=== PATIENT | female | born 1950 | race Caucasian/White ===

== ENCOUNTER 2023-09-15 14:23 | Observation (INO) | payer OTHER, SELFPAY ==
[2023-09-15] VITALS (13 sets, daily range): BP systolic 109–190; BP diastolic 61–126; PULSE 48–70; RESP 12–25; TEMP 36.6–36.9; O2SAT 93–98; BMI 32.5; BMI 31.4
--- NOTE | 2023-09-15 14:40 | EKG12_ITS ---
Test Reason : AMS Blood Pressure : / mmHG Vent. Rate : 051 BPM Atrial Rate : 051 BPM P-R Int : 228 ms QRS Dur : 104 ms QT Int : 532 ms P-R-T Axes : 042 -18 040 degrees QTc Int : 490 ms Sinus bradycardia with 1st degree A-V block Minimal voltage criteria for LVH, may be normal variant ( Srini product ) Prolonged QT Abnormal ECG Confirmed by Santy Coppola ([id number]), visual effects editor VINNY HUANG ([id number]) on 09/16/2023 9:18:20 AM Referred By: Confirmed By:Santy Coppola
[2023-09-15 15:14] LABS: Absolute Lymphocyte Count 6.03 X10^3/uL (0.83-4.51); Absolute Neutrophil Count 5.6 X10^3/uL (2.0-7.7); Basophil# 0.09 X10^3/uL; Basophil% 0.7 % (0-1); Eosinophil# 0.18 X10^3/uL; Eosinophils% 1.3 % (0-5); Hematocrit 39.5 % (37-47); Hemoglobin 12.9 g/dL (12.0-15.0); Lymphocyte # 6.03 X10^3/ul (0.83-4.51); Lymphocyte % 44.6 % (19-41); Mean Corp Hgb Conc 32.7 g/dL (32-36); Mean Corpuscular Hgb 29.5 pg (27.0-32.0); Mean Corpuscular Volume 90.4 fL (81-99); Mean Platelet Vol. 10.1 fl (6.2-12.0); Monocyte# 1.08 X10^3/uL; NRBC Flagged by Analyzer 0 % (0-5); Neutrophil # 5.62 X10^3/uL (2.7-7.7); Neutrophil % 41.6 % (47-70); POSITIVE DIFFERENTIAL YES; POSITIVE MORPHOLOGY YES; Platelet Count 285 K/mm3 (150-450); RBC Distribution Width CV 14.3 % (11.6-14.6); RBC Distribution Width SD 47.3 fl (35.1-43.9); Red Blood Count 4.37 M/mm3 (4.2-5.4); White Blood Count 13.5 K/mm3 (4.4-11.0)
[2023-09-15 15:15] LABS: Anion Gap 6 (5-15); BUN 18 mg/dL (7-18); BUN/Creat Ratio 21.8 RATIO (10-20); Calcium,Total 9.2 mg/dL (8.5-10.1); Chloride 110 mmol/L (98-107); Creatinine, Serum 0.83 mg/dL (0.55-1.02); EST Glomerular Filtration Rate 72 mL/min (>60); Est Glom Filt Rate - Afr Amer 87 mL/min (>60); Estimated Creatinine Clearance 66.48 ml/min; Glucose 142 mg/dL (74-106); Sodium Level 142 mmol/L (136-145)
[2023-09-15 15:16] LABS: Prothrombin Time (Protime)PT. 12.7 SECONDS (11.7-14.9)
[2023-09-15 15:17] LABS: Partial Thromboplast Time 21.5 Seconds (24.1-36.2)
--- NOTE | 2023-09-15 15:36 | EDS_ITS ---
HPI History of Present Illness Chief Complaint: Syncope Informant: patient, family and EMS Narrative Narrative: 73-year-old female with history of coronary artery disease presenting to the emergency department following a near syncopal episode. Patient states she was in her normal state of health this morning at around 1130 left home to go have lunch with her sisters as it is the patient's birthday. She ate lunch consisting of mashed potatoes and a ham loaf. No one else ate the same food. She states she went upstairs to go shopping and while standing in line had very hot and lightheaded and had to sit down. She felt like she was going to pass out. She was not experience any significant abdominal pain or chest pain/shortness of breath. Family states she was not sweaty. Patient subsequently has developed nausea and vomiting. No diarrhea. No fever. Patient had PTCA to unknown artery about 10 years ago at [facility]. She does not take any medications and sees a filling hand every summer. [facility] Medical History History of CVA (cerebrovascular accident) History of traumatic brain injury Obesity HLD (hyperlipidemia) HTN (hypertension) Coronary artery disease CHF (congestive heart failure) Diabetes Allergy/AdvReac Type Severity Reaction Status Date / Time No Known Allergies Allergy Verified 09/15/23 14:24 Family History (Updated 09/15/23 @ 21:[address] Doris Lujan MD) Mother Heart disease CAD (coronary artery disease) CVA (cerebral vascular accident) Diabetes Hypertension Father Heart disease CAD (coronary artery disease) Hypertension Valvular heart disease Heart failure Surgical History History of coronary angioplasty with insertion of stent Social History household members: spouse and family Smoking Status: Never smoker alcohol intake: never substance use type: does not use ROS ROS ED Constitutional Constitutional ED: Denies chills, fever(s) or weight loss Eyes Eyes: Denies change in vision or diplopia ENT ENT ED: Denies ear pain, rhinorrhea or sore throat Cardiovascular Cardiovascular: Reports other Details: Near syncope lightheadedness ; Denies chest pain, orthopnea, palpitations or racing heartbeat Respiratory/Chest Respiratory/Chest: Denies cough, dyspnea or orthopnea Gastrointestinal Gastrointestinal: Reports nausea and vomiting; Denies abdominal pain or diarrhea Genitourinary Genitourinary ED: Denies dysuria, hematuria or urinary frequency Musculoskeletal Musculoskeletal: Reports other Details: Patient denies arm pain ; Denies arthralgias, back pain, myalgias or neck pain Integumentary Denies abscess or rash Neurologic Neurologic: Denies headache(s), paresthesias or weakness Psychiatric Psychiatric: Denies anxiety, depression, suicidal ideation or suicidal thoughts Endocrine Endocrinology: Denies polydipsia, polyphagia or polyuria Allergic/Immunologic Allergic/Immunologic ED: Denies mouth swelling, tongue swelling or urticaria EXAM Physical Exam Const Vital Signs: 09/15/23 14:24 09/15/23 14:25 09/15/23 14:44 Temperature 97.8 F Temperature Source Temporal Pulse Rate 49 L Pulse Rate [Lying] Pulse Rate [Sitting (for 1 minute prior to obtaining)] Pulse Rate [Standing (for 1 minute prior to obtaining)] Respiratory Rate 14 Respiratory Effort Normal Respiratory Pattern Normal Blood Pressure 167/73 H Blood Pressure [Lying] Blood Pressure [Sitting (for 1 minute prior to obtaining)] Blood Pressure [Standing (for 1 minute prior to obtaining)] Blood Pressure Mean 104 Blood Pressure Mean [Lying] Blood Pressure Mean [Sitting (for 1 minute prior to obtaining)] Blood Pressure Mean [Standing (for 1 minute prior to obtaining)] Pulse Ox 93 Oxygen Delivery Method Room Air Room Air 09/15/23 15:36 09/15/23 16:00 09/15/23 17:00 Temperature Temperature Source Pulse Rate 48 L 51 L 48 L Pulse Rate [Lying] Pulse Rate [Sitting (for 1 minute prior to obtaining)] Pulse Rate [Standing (for 1 minute prior to obtaining)] Respiratory Rate 12 16 14 Respiratory Effort Respiratory Pattern Blood Pressure 135/72 H 133/72 H 180/76 H Blood Pressure [Lying] Blood Pressure [Sitting (for 1 minute prior to obtaining)] Blood Pressure [Standing (for 1 minute prior to obtaining)] Blood Pressure Mean 93 92 110 Blood Pressure Mean [Lying] Blood Pressure Mean [Sitting (for 1 minute prior to obtaining)] Blood Pressure Mean [Standing (for 1 minute prior to obtaining)] Pulse Ox 97 98 98 Oxygen Delivery Method Room Air Room Air Room Air 09/15/23 17:26 09/15/23 18:00 09/15/23 19:00 Temperature Temperature Source Pulse Rate 54 L 55 L Pulse Rate [Lying] 66 Pulse Rate [Sitting (for 1 minute prior to obtaining)] 58 L Pulse Rate [Standing (for 1 minute prior to obtaining)] 60 Respiratory Rate 16 19 H Respiratory Effort Respiratory Pattern Blood Pressure 178/126 H 150/75 H Blood Pressure [Lying] 182/64 H Blood Pressure [Sitting (for 1 minute prior to obtaining)] 190/61 H Blood Pressure [Standing (for 1 minute prior to obtaining)] 178/78 H Blood Pressure Mean 143 100 Blood Pressure Mean [Lying] 103 Blood Pressure Mean [Sitting (for 1 minute prior to obtaining)] 104 Blood Pressure Mean [Standing (for 1 minute prior to obtaining)] 111 Pulse Ox 98 95 Oxygen Delivery Method Room Air 09/15/23 20:00 09/15/23 21:00 Temperature Temperature Source Pulse Rate 70 56 L Pulse Rate [Lying] Pulse Rate [Sitting (for 1 minute prior to obtaining)] Pulse Rate [Standing (for 1 minute prior to obtaining)] Respiratory Rate 25 H 18 Respiratory Effort Respiratory Pattern Blood Pressure 171/61 H 109/97 H Blood Pressure [Lying] Blood Pressure [Sitting (for 1 minute prior to obtaining)] Blood Pressure [Standing (for 1 minute prior to obtaining)] Blood Pressure Mean 97 101 Blood Pressure Mean [Lying] Blood Pressure Mean [Sitting (for 1 minute prior to obtaining)] Blood Pressure Mean [Standing (for 1 minute prior to obtaining)] Pulse Ox 96 96 Oxygen Delivery Method Room Air Room Air Positive well nourished, well developed and obese General Appearance ED: well developed Nutritional Appearance: obese HEENT Reports normocephalic, head/scalp atraumatic and moist mucous membranes Eyes PERRL and EOMs intact bilaterally Neck no lymphadenopathy, supple and no JVD Resp normal respiratory effort and clear to auscultation bilaterally Cardio regular rate and no murmurs Rate: bradycardia GI normal to inspection, nondistended, normoactive bowel sounds and non-tender Palpation: soft Back/Spine no CVA tenderness and normal ROM Extremity normal to inspection General Extremety ED: Negative for edema General Extremity: Negative for edema Neuro oriented x3 and CN's II-XII intact bilaterally Sensorium / Orientation: alert Motor Exam: strength 5/5 throughout Psych mental status grossly normal Mood & Affect: Negative for depressed or tearful Skin no rashes or lesions noted and no wounds MDM MDM MDM Narrative Medical decision making narrative: Differential diagnosis includes but not limited to ACS primary cardiac dysrhythmia vasovagal syncope gastroenteritis stroke intracranial hemorrhage Patient noted to be hypertensive. She tells me initially that she has a history of stroke but it later turns out that she had a syncopal episode following striking her head several arita ago. White count returns 13.5 with a hemoglobin of 12.9. 2 sets of cardiac enzymes are normal. Lipase is 66 BMP shows a potassium of 3 magnesium is normal at 2.2 glucose 142 my independent interpretation of the chest x-ray is no acute process. Patient continues to be hypertensive as well as lightheaded. We attempted to obtain orthostatics on her which were normal but the patient was very dizzy. Trying to elucidate if she means more lightheaded or if the room is spinning she tells me more dizzy that it spinning. She cannot say if the room is spinning in 1 direction or the other with horizontal or vertical. She tells me she has a history of vertigo. A CT of the brain was obtained which demonstrates subacute to chronic infarct region right basal ganglia and a chronic left cerebellar infarct. Patient received a dose of Valium and her symptoms persist. I gave her Tylenol for a headache. We also administered supplemental potassium as well as Zofran. Rocephin and azithromycin were inadvertently ordered on the patient and were rapidly canceled. Given the above workup the lack of prodrome and the difficulty in elucidating a clear history I like to bring her into the hospital for possible posterior circulation stroke. History & Record Review Discussion w/independent historian: EMS personnel, Patient and Family Lab Data Attestation: I reviewed the patient's lab results. Labs: Laboratory Results - last 24 hr 09/15/23 09/15/23 14:35 16:30 WBC 13.5 H RBC 4.37 Hgb 12.9 Hct 39.5 MCV 90.4 MCH 29.5 MCHC 32.7 RDW Std Deviation 47.3 H RDW Coeff of Jase 14.3 Plt Count 285 MPV 10.1 Immature Gran % (Auto) 3.800 H Neut % (Auto) 41.6 L Lymph % (Auto) 44.6 H Roane % (Auto) 8.0 Eos % (Auto) 1.3 Baso % (Auto) 0.7 Absolute Neuts (auto) 5.6 Absolute Lymphs (auto) 6.03 H Nucleated RBC % 0 PT 12.7 INR 1.0 APTT 21.5 L Sodium 142 Potassium 3.0 L Chloride 110 H Carbon Dioxide 26.0 Anion Gap 6 BUN 18 Creatinine 0.83 Estim Creat Clear Calc 66.48 Est GFR (MDRD) Af Amer 87 Est GFR (MDRD) Non-Af 72 BUN/Creatinine Ratio 21.8 H Glucose 142 H Calcium 9.2 Magnesium 2.2 Total Bilirubin 0.40 Direct Bilirubin 0.11 AST 29 ALT 26 Alkaline Phosphatase 58 Troponin I High Sens 4 5 Total Protein 7.8 Albumin 3.6 Globulin 4.2 Lipase 66 Radiography Diagnostic Testing: Clinical Impression(s) from Imaging Studies Chest X-Ray 09/15/23 15:45 IMPRESSION: No acute cardiopulmonary pathology Electronically Signed: Praful Springer MD at 16:57 EDT , Brain CT 09/15/23 18:21 IMPRESSION: Atrophy and mild periventricular white matter ischemic changes. Cannot exclude evolving NPH. Probable subacute to chronic right basal ganglia lacunar infarct and old left cerebellar infarct. No acute bleed. If concern for acute infarct MRI recommended Electronically Signed: Praful Springer MD at 19:28 EDT , Head/Neck CTA 09/15/23 19:36 IMPRESSION: . Mild atherosclerotic changes of the brain without evidence for hemodynamically significant stenosis or major vessel occlusion. Minor atherosclerotic changes of the cervical carotids. Normal right vertebral. Occluded proximal left vertebral which is reconstituted distally and then is occluded again at the level of the foramen magnum Electronically Signed: Praful Springer MD at 21:37 EDT , EKG Initial EKG: Attestation: I personally reviewed and interpreted this EKG as follows: Comments: Sinus bradycardia with a first-degree AV block at a ventricular rate of 51 bpm Discharge Plan Dx/Rx/DC Orders Clinical Impression: Near syncope, Vomiting, Coronary artery disease Disposition Disposition: Acute Care Hospital [facility] Discharge Date/Time: 09/15/23 22:23
[2023-09-15] MEDS: Ondansetron 4 MG/2 ML Vial IV ×2 (15:41→23:08)
--- NOTE | 2023-09-15 15:45 | RAD_ITS ---
STUDY: X-RAY CHEST REASON FOR EXAM: Female, 73 years old. syncope TECHNIQUE: AP portable COMPARISON: None. FINDINGS: The lungs are clear and expanded. There is no demonstrated pleural abnormality. Borderline cardiomegaly.. Normal mediastinum and rafaela. Normal visualized pulmonary arteries. Mildly calcified aortic arch and descending thoracic aorta. Normal visualized thoracic spine. Normal visualized ribs, clavicles, and shoulders. There is no demonstrated abnormality of the visualized soft tissue structures of the upper abdomen. RAD/Chest 1 View (Portable) IMPRESSION: No acute cardiopulmonary pathology Electronically Signed: Praful Springer MD at 16:57 EDT ,
[2023-09-15 16:05] LABS: Differential Indicated SCAN CRITERIA MET
[2023-09-15 16:23] LABS: AST(SGOT) 29 U/L (15-37); Alanine Aminotransfer ALT/SGPT 26 U/L (13-56); Albumin, Serum 3.6 g/dL (3.2-5.0); Alkaline Phosphatase 58 U/L (45-117); Bilirubin, Direct 0.11 mg/dL (0.00-0.30); Globulin 4.2 g/dL (2.2-4.2); Lipase 66 U/L (13-75); Protein, Total 7.8 g/dL (6.4-8.2); Troponin-I HS 4 pg/mL (3.0-54.0)
[2023-09-15 17:03] LABS: Troponin-I HS 5 pg/mL (3.0-54.0)
[2023-09-15] MEDS: Potassium Chloride Oral Tablet 20 MEQ 40 MEQ PO (17:30)
--- NOTE | 2023-09-15 18:21 | CT_ITS ---
STUDY: CT BRAIN WITHOUT CONTRAST REASON FOR EXAM: Female, 73 years old. dizziness RADIATION DOSAGE (If Supplied By Facility): CTDIvol = ( 44.99 ) mGy, DLP = ( 829.85 ) mGycm TECHNIQUE: Transaxial CT imaging of the brain was performed without administration of intravenous contrast material. Individualized dose optimization techniques were used for this CT. COMPARISON: No relevant priors. FINDINGS: Normal soft tissue structures. Normal calvarium. Calcific plaquing of the cavernous carotids. Mild atrophy and periventricular white matter ischemic changes. There is disproportionate dilatation of lateral ventricles with respect to the cortical sulci and possibility of communicating hydrocephalus or NPH not excluded. . Tiny lacunar infarct in the right basal ganglia likely subacute to chronic. Normal brainstem. There is an infarct in left cerebellar hemisphere likely chronic. Empty sella deformity of uncertain significance. There is no intracranial hemorrhage. There are no findings of an acute ischemic infarction. Moderate mucosal thickening of the maxillary and ethmoid sinuses bilaterally. Postsurgical changes of the orbits.. CT/Brain/Head without Contrast IMPRESSION: Atrophy and mild periventricular white matter ischemic changes. Cannot exclude evolving NPH. Probable subacute to chronic right basal ganglia lacunar infarct and old left cerebellar infarct. No acute bleed. If concern for acute infarct MRI recommended Electronically Signed: Praful Springer MD at 19:28 EDT ,
[2023-09-15] MEDS: diazePAM 5 MG Tablet PO (18:25)
[2023-09-15] MEDS: Acetaminophen 500 MG Tablet 1000 MG PO (18:25)
[2023-09-15 18:28] LABS: Magnesium 2.2 mg/dL (1.6-2.6)
--- NOTE | 2023-09-15 19:36 | CT_ITS ---
STUDY: CTA HEAD AND NECK WITH CONTRAST REASON FOR EXAM: Female, 73 years old. stroke RADIATION DOSAGE (If Supplied By Facility): CTDIvol = ( 23.84 ) mGy, DLP = ( 718.95 ) mGycm TECHNIQUE: CT angiography was performed with a multi-detector CT scanner. Data acquisition was obtained from the skull base through the vertex following intravenous administration of IV 100mL [id number]-[id number]. MIP images were reconstructed from the axial data set. Post-processing of the angiographic images was performed, with multiplanar reformation and 3D reconstruction. Individualized dose optimization techniques were used for this CT. COMPARISON: No relevant priors. FINDINGS: Normal bilateral petrous carotid arteries. Calcific plaquing of the right cavernous carotid artery with a normal supraclinoid bifurcation. Calcific plaquing of the left cavernous carotid artery with a normal supraclinoid bifurcation. Normal right A1 segments of the anterior cerebral artery. Normal left A1 segments of the anterior cerebral artery. Normal intact anterior communicating artery (ACOM). Normal bilateral A2 segments of the anterior cerebral arteries. Normal right M1 and M2 segments of the middle cerebral arteries, with a normal M1 bifurcation. Normal left M1 and M2 segments of the middle cerebral arteries, with a normal M1 bifurcation. Posterior communicating arteries are not visualized consistent with normal variant. Normal right vertebral. Occluded distal left vertebral. Normal basilar artery with a normal basilar bifurcation. The visualized bilateral superior cerebellar (SCA) arteries are normal. Normal bilateral P1, P2 and visualized P3 segments of the posterior cerebral arteries. There is no demonstrated aneurysm of the [place]. AORTIC ARCH: Normal visualized aortic arch. Normal origins of the brachiocephalic, left common carotid, and left subclavian arteries. RIGHT CAROTID ARTERIES: Normal right common carotid artery (CCA). Normal right common carotid bulb. Mild calcific plaquing of the origin of the right internal carotid (ICA) artery without a hemodynamically significant stenosis. Normal visualized cervical portion of the right internal carotid artery. Normal origin of the right external carotid artery (ECA). LEFT CAROTID ARTERIES: Normal left common carotid artery (CCA). Minor calcific plaquing of the left common carotid bulb. Normal origin of the left internal carotid (ICA) artery without a hemodynamically significant stenosis. Normal visualized cervical portion of the left internal carotid artery. Normal origin of the left external carotid artery (ECA). VERTEBRAL ARTERIES: Normal right vertebral. There is occlusion of the proximal left vertebral which is reconstituted distally and then occluded at the level of the foramen magnum CT/CTA Head AND Neck W/ Contrast IMPRESSION: . Mild atherosclerotic changes of the brain without evidence for hemodynamically significant stenosis or major vessel occlusion. Minor atherosclerotic changes of the cervical carotids. Normal right vertebral. Occluded proximal left vertebral which is reconstituted distally and then is occluded again at the level of the foramen magnum Electronically Signed: Praful Springer MD at 21:37 EDT ,
--- NOTE | 2023-09-15 21:12 | HP.PCM.HOS_ITS ---
HPI - General General Date of Admission: 09/15/23 Date of Service: 09/15/23 Chief Complaint: Lightheadedness, dizziness, N/V, near syncope. HPI Narrative The patient is a 73 y/o F w/ PMHx: CAD s/p remote PCI, HTN, HLD, HF unclear type, Hx prior traumatic brain hemorrhage (occipital) following mechanical fall, Diabetes mellitus type II, Obesity who presents to the [facility] ED on 09/15/23 with history of near syncopal episode reportedly in her normal state of health leaving home at approximately 1130 to have lunch with her and her sisters as it was her birthday reportedly transitioning from lunch to go shopping and while she was standing in line she became very hot and lightheaded requiring her to sit down with sensation that she was going to pass out with no recent chest pain, dyspnea, abdominal pain however she did have then nausea and bout of emesis eventually improving but given this finding prompted eventual ED evaluation. She does report history of occasional vertigo. She currently states that during this episode she did not have any sensation of room spinning. She does report that she had onset of a headache on the top part of her head described as an aching 3 out of 10 with no light or sound sensitivity that started after the onset of her lightheadedness, dizziness and bouts of nausea and emesis. Patient reports that she follows with osteopathic medicine and does not take any medications. Workup in the ED included T97.8, heart rate 49, BP 167/73, respiratory rate 93, orthostatics not marked appearing, most recent repeat vitals heart rate 70, BP 171/61, respiratory rate 25, 96% room air, CBC with WC of 13.5, hemoglobin 12.9, platelets 285 with left shift and lymphocytosis, coags with PTT 21.5 otherwise not marked appearing, CMP with potassium 3.0, chloride 110, glucose 142, magnesium 2.2, hepatic profile not marked appearing, troponin initial 4 and repeat delta 5, chest x-ray with no acute cardiopulmonary findings, CT brain with atrophy and mild periventricular white matter ischemic changes with inability to exclude evolving NPH, probable subacute to chronic right basal ganglier lacunar infarct and an old left cerebellar infarct with no evidence of any acute bleed, CTA head and neck pending upon evaluation, EKG with sinus bradycardia with first-degree AV block with no acute evidence of ischemia with no comparison. In the ED patient ministered potassium chloride 40 mill equivalent p.o. x 1, Zofran 4 mg IV x 1, Tylenol 1000 mg p.o. x 1, Valium 5 mg p.o. x 1. [facility] Medical History History of CVA (cerebrovascular accident) History of traumatic brain injury Obesity HLD (hyperlipidemia) HTN (hypertension) Coronary artery disease CHF (congestive heart failure) Diabetes Allergy/AdvReac Type Severity Reaction Status Date / Time No Known Allergies Allergy Verified 09/15/23 14:24 Family History Mother Heart disease CAD (coronary artery disease) CVA (cerebral vascular accident) Diabetes Hypertension Father Heart disease CAD (coronary artery disease) Hypertension Valvular heart disease Heart failure Surgical History History of coronary angioplasty with insertion of stent Social History household members: spouse and family Smoking Status: Never smoker alcohol intake: never substance use type: does not use ROS ROS Narrative Admission Review of Systems: CONSTITUTIONAL: No weight loss, fever, chills, + weakness or fatigue. HEENT: + Lightheadedness, dizziness, headache. Does have history of vertigo, not currently. Eyes: No visual loss, blurred vision, double vision or yellow sclerae. Ears, Nose, Throat: No hearing loss, sneezing, congestion, runny nose or sore throat. SKIN: No rash or itching, lesions, wounds. CARDIOVASCULAR: No chest pain, chest pressure or chest discomfort, palpitations, edema, orthopnea, syncopal events. RESPIRATORY: No shortness of breath, cough or sputum, wheezing, hemoptysis. GASTROINTESTINAL: + Bout nausea, vomiting. No anorexia, diarrhea, abdominal pain, melena, BRBPR. GENITOURINARY: No dysuria, frequency, urgency or retention. NEUROLOGICAL: + Episode of lightheadedness, dizziness, headache, near syncopal event, chronic intermittent episodes of vertigo. No paralysis, ataxia, numbness or tingling in the extremities, focal weakness, change in bowel or bladder control, seizure. MUSCULOSKELETAL: + muscle, back pain, joint pain or stiffness. HEMATOLOGIC: No anemia, bleeding or bruising. LYMPHATICS: No enlarged nodes. No history of splenectomy. PSYCHIATRIC: No history of depression or anxiety. ENDOCRINOLOGIC: No reports of sweating, cold or heat intolerance. No polyuria or polydipsia. ALLERGIES: No history of asthma, hives, eczema or rhinitis. Vital Signs Vital Signs Vital Signs: 09/15/23 14:24 09/15/23 14:25 09/15/23 14:44 Temperature 97.8 F Temperature Source Temporal Pulse Rate 49 L Pulse Rate [Lying] Pulse Rate [Sitting (for 1 minute prior to obtaining)] Pulse Rate [Standing (for 1 minute prior to obtaining)] Respiratory Rate 14 Respiratory Effort Normal Respiratory Pattern Normal Blood Pressure 167/73 H Blood Pressure [Lying] Blood Pressure [Sitting (for 1 minute prior to obtaining)] Blood Pressure [Standing (for 1 minute prior to obtaining)] Blood Pressure Mean 104 Blood Pressure Mean [Lying] Blood Pressure Mean [Sitting (for 1 minute prior to obtaining)] Blood Pressure Mean [Standing (for 1 minute prior to obtaining)] Pulse Ox 93 Oxygen Delivery Method Room Air Room Air 09/15/23 15:36 09/15/23 16:00 09/15/23 17:00 Temperature Temperature Source Pulse Rate 48 L 51 L 48 L Pulse Rate [Lying] Pulse Rate [Sitting (for 1 minute prior to obtaining)] Pulse Rate [Standing (for 1 minute prior to obtaining)] Respiratory Rate 12 16 14 Respiratory Effort Respiratory Pattern Blood Pressure 135/72 H 133/72 H 180/76 H Blood Pressure [Lying] Blood Pressure [Sitting (for 1 minute prior to obtaining)] Blood Pressure [Standing (for 1 minute prior to obtaining)] Blood Pressure Mean 93 92 110 Blood Pressure Mean [Lying] Blood Pressure Mean [Sitting (for 1 minute prior to obtaining)] Blood Pressure Mean [Standing (for 1 minute prior to obtaining)] Pulse Ox 97 98 98 Oxygen Delivery Method Room Air Room Air Room Air 09/15/23 17:26 09/15/23 18:00 09/15/23 19:00 Temperature Temperature Source Pulse Rate 54 L 55 L Pulse Rate [Lying] 66 Pulse Rate [Sitting (for 1 minute prior to obtaining)] 58 L Pulse Rate [Standing (for 1 minute prior to obtaining)] 60 Respiratory Rate 16 19 H Respiratory Effort Respiratory Pattern Blood Pressure 178/126 H 150/75 H Blood Pressure [Lying] 182/64 H Blood Pressure [Sitting (for 1 minute prior to obtaining)] 190/61 H Blood Pressure [Standing (for 1 minute prior to obtaining)] 178/78 H Blood Pressure Mean 143 100 Blood Pressure Mean [Lying] 103 Blood Pressure Mean [Sitting (for 1 minute prior to obtaining)] 104 Blood Pressure Mean [Standing (for 1 minute prior to obtaining)] 111 Pulse Ox 98 95 Oxygen Delivery Method Room Air 09/15/23 20:00 09/15/23 21:00 Temperature Temperature Source Pulse Rate 70 56 L Pulse Rate [Lying] Pulse Rate [Sitting (for 1 minute prior to obtaining)] Pulse Rate [Standing (for 1 minute prior to obtaining)] Respiratory Rate 25 H 18 Respiratory Effort Respiratory Pattern Blood Pressure 171/61 H 109/97 H Blood Pressure [Lying] Blood Pressure [Sitting (for 1 minute prior to obtaining)] Blood Pressure [Standing (for 1 minute prior to obtaining)] Blood Pressure Mean 97 101 Blood Pressure Mean [Lying] Blood Pressure Mean [Sitting (for 1 minute prior to obtaining)] Blood Pressure Mean [Standing (for 1 minute prior to obtaining)] Pulse Ox 96 96 Oxygen Delivery Method Room Air Room Air Weight Weight: 195 lb 15.855 oz Body Mass Index (BMI) 32.5 Physical Exam Narrative Physical Examination: General: Awake, alert, oriented x 3 and cooperative, laying in the ED bed, fatigued, notes having a headache however feels improved with no nausea or emesis or lightheadedness or dizziness. Skin: Normal color, normal turgor, no icterus, no cyanosis except occasional abrasion. HEENT: AT/NC, EOMI, PERRLA, dry MM, no carotid bruits or markedly noted JVD; however, thickened neck makes evaluation difficult Lungs: CTA bilaterally, moderate effort, mild decrease BL bases, no rales, ronchi or wheezing. Heart: Mildly bradycardic with regular rhythm; no gallop, rub audible. Abdomen: Soft, obese, NTTP, ND, distant normal BS, no appreciated HSM. Extremities: No cyanosis, clubbing, or edema. Neurological: Patient awake, alert, oriented as noted, cognitive function intact; pupils equally reactive to light and accommodation, cranial nerves grossly normal, moving all 4 extremities, no focal deficits, strength mildly to moderately globally decreased but again no focal deficits as noted, sensation intact, finger-nose and [id number] appropriate. Psychiatric: Affect appears improved from initial presentation per spouse report, currently appears fatigued otherwise normal, no acute evidence of depressive or anxiety feelings. Results Lab / Micro Data 09/15/23 14:35 09/15/23 14:35 Labs: Laboratory Results - last 24 hr 09/15/23 14:35: WBC 13.5 H, RBC 4.37, Hgb 12.9, Hct 39.5, MCV 90.4, MCH 29.5, MCHC 32.7, RDW Std Deviation 47.3 H, RDW Coeff of Jase 14.3, Plt Count 285, MPV 10.1, Immature Gran % (Auto) 3.800 H, Neut % (Auto) 41.6 L, Lymph % (Auto) 44.6 H, [place] % (Auto) 8.0, Eos % (Auto) 1.3, Baso % (Auto) 0.7, Absolute Neuts (auto) 5.6, Absolute Lymphs (auto) 6.03 H, Nucleated RBC % 0, PT 12.7, INR 1.0, APTT 21.5 L, Sodium 142, Potassium 3.0 L, Chloride 110 H, Carbon Dioxide 26.0, Anion Gap 6, BUN 18, Creatinine 0.83, Estim Creat Clear Calc 66.48, Est GFR (MDRD) Af Amer 87, Est GFR (MDRD) Non-Af 72, BUN/Creatinine Ratio 21.8 H, Glucose 142 H, Calcium 9.2, Total Bilirubin 0.40, Direct Bilirubin 0.11, AST 29, ALT 26, Alkaline Phosphatase 58, Troponin I High Sens 4, Total Protein 7.8, Albumin 3.6, Globulin 4.2, Lipase 66 09/15/23 16:30: Magnesium 2.2, Troponin I High Sens 5 Imaging Radiology Impression Chest X-Ray 09/15/23 15:45 IMPRESSION: No acute cardiopulmonary pathology Electronically Signed: Praful Springer MD at 16:57 EDT , Brain CT 09/15/23 18:21 IMPRESSION: Atrophy and mild periventricular white matter ischemic changes. Cannot exclude evolving NPH. Probable subacute to chronic right basal ganglia lacunar infarct and old left cerebellar infarct. No acute bleed. If concern for acute infarct MRI recommended Electronically Signed: Praful Springer MD at 19:28 EDT Reading Location ID and State: [address] [place] [address] Tel , Service support , Assessment & Plan Assessment/Plan (1) Near syncope: PLAN: Plan The patient is a 73 y/o F w/ PMHx: CAD s/p remote PCI, HTN, HLD, HF unclear type, Hx prior traumatic brain hemorrhage (occipital) following mechanical fall, Diabetes mellitus type II, Obesity who presents to the [facility] ED on 09/15/23 with history of near syncopal episode reportedly in her normal state of health leaving home at approximately 1130 to have lunch with her and her sisters as it was her birthday reportedly transitioning from lunch to go shopping and while she was standing in line she became very hot and lightheaded requiring her to sit down with sensation that she was going to pass out with no recent chest pain, dyspnea, abdominal pain however she did have then nausea and bout of emesis eventually improving but given this finding prompted eventual ED evaluation. #1. Near syncopal event with lightheadedness, dizziness, nausea and bout of emesis, unclear exact etiology however concern for Subacute CVA given imaging findings with CT head with concern for subacute to chronic right basal ganglia lacunar infarcts and noted also old left cerebellar infarct w/ Hx prior traumatic brain hemorrhage (occipital) following mechanical fall: CTA head and neck pending upon evaluation. As long as no intervention needs determined which is not expected then would plan to process with admission to PCU, will obtain MRI Brain, ECHO, PT/OT/Speech/Nutrition evaluation per protocol. Will allow permissive HTN, maintain on asa, statin w/ AM FLP, fall precautions. Mag, TSH, FLP, HgbA1c requested. Maintain on fall and aspiration precautions. Will request neurology consultation. Additionally will continue to cycle cardiac enzymes. #2. Diabetes mellitus type II: Patient not on any regimen with homeopathic interventions noted only, hemoglobin A1c requested, nutrition consulted per stroke protocol as noted, maintain on ADA diet, accu checks w/ ISS. #3. HF, unclear type: Given presentation and unclear history will judiciously hydrate, will maintain on aspirin as noted as well as addition of statin therapy, permissive hypertension ongoing but once appropriate if necessary will add hypertensive regimen as patient per report is mostly been utilizing homeopathic therapies. At the cutting requested is noted. #4. Hypertension, untreated: Patient not on any regimen with homeopathic interventions noted only, given presentation we will maintain permissive hypertension pending further evaluation with MRI as noted with as needed agents per stroke protocol. #5. Hyperlipidemia: Will initiate statin therapy given number 1, FLP in AM. #6. Hypokalemia: Admission K+ 3.0, magnesium level per ED 2.2, supplementation given, repeat level in AM. #7. CAD: Status post remote PCI approximately 10 years prior, unclear exact vessel intervention, will maintain on aspirin, statin addition as noted, temporary permissive hypertension with addition of hypertensive regimen following as noted above. Prior to this patient has not been on any medication and notes only following with homeopathic medicine. #8. Obesity: Weight loss and lifestyle changes encouraged. #9. DVT prophylaxis: Lovenox. #10. CODE status: Patient HCPOA and living will are not in place but she notes her would be her medical decision-maker if necessary. Discussed CODE status at length including difference between FULL code, DNR-CCA and DNR-CC status. Following discussions about the differences in these status, requested DNR-CCA, no intubation status which was confirmed upon repeat discussions to be certain. Advanced Care Planning Face to Face Time: 16 minutes. Charges/Coding Visit Charges Inpatient E&M: 87507 Init Hosp L3 Procedures Hospitalists Procedures: 73341 Advncd Care Plan 30 Min
--- NOTE | 2023-09-15 22:48 | ECHOD_ITS ---
Reason For Study: TIA/CVA Procedure This was a 2D Doppler, Color Flow transthoracic echocardiogram. Exam performed portable in patient room. Left Ventricle Normal LV size. Mild concentric left ventricular hypertrophy. The estimated ejection fraction is 65- 70 %. Normal diastology for age. No regional wall motion abnormalities noted. Right Ventricle Normal RV size. A moderator band is seen in the right ventricle. Normal systolic function. Atria The left atrium is mildly enlarged. Normal right atrium. Bubble contrast study is negative for PFO/ASD. Mitral Valve The mitral valve is structurally normal. No prolapse or stenosis seen. Mild (1+) mitral valve insufficiency. Tricuspid Valve Normal tricuspid valve. Trivial tricuspid valve insufficiency. Aortic Valve Trisinus/trileaflet aortic valve. Pulmonic Valve The pulmonic valve is not well visualized. Trivial pulmonic valve insufficiency. Great Vessels Normal aortic root. Pericardium/Pleural Trivial pericardial effusion. Epicardial fat. There are no echocardiographic indications of cardiac tamponade. Medication Performed a rapid injection of agitated mix of 9 cc saline and 1cc air to assess for atrial septal defect. MMode/2D Measurements & Calculations LVIDd: 4.9 cm IVSd: 1.4 cm LVOT diam: 1.9 cm LVIDs: 2.3 cm LVPWd: 1.2 cm RVDd: 3.5 cm FS: 53.4 % LVOT area: 2.8 cm2 Ao root diam: 2.9 cm LAV(MOD-bp): 57.9 ml LVAd ap4: 21.5 cm2 LAV(MOD-bp) Indexed: 30.1 ml/m2 LVLd ap4: 7.3 cm LAV(MOD-sp2): 75.0 ml EDV(MOD-sp4): 53.5 ml LAV(MOD-sp4): 43.0 ml EDV(sp4-el): 53.9 ml LVAs ap4: 9.7 cm2 LVLs ap4: 5.6 cm ESV(MOD-sp4): 14.4 ml ESV(sp4-el): 14.3 ml EF(MOD-sp4): 73.1 % EF(sp4-el): 73.5 % LVAd ap2: 25.5 cm2 SV(MOD-sp4): 39.1 ml SV(MOD-sp2): 55.2 ml LVLd ap2: 7.4 cm EDV(MOD-sp2): 74.1 ml EDV(sp2-el): 74.6 ml LVAs ap2: 11.5 cm2 LVLs ap2: 5.7 cm ESV(MOD-sp2): 19.0 ml ESV(sp2-el): 19.5 ml EF(MOD-sp2): 74.4 % SV(sp4-el): 39.6 ml LA dimension(2D): 3.7 cm LA A4 area: 16.8 cm2 RA A4 area: 14.2 cm2 TAPSE: 2.4 cm Time Measurements MV dec time: 0.23 sec Doppler Measurements & Calculations MV E max joshua: 120.4 cm/sec Lat Peak E' Joshua: 8.0 cm/sec Med Peak E' Joshua: 9.9 cm/sec MV A max joshua: 122.4 cm/sec E/E' lat: 15.1 E/E' med: 12.2 MV E/A: 0.98 Ao V2 max: 165.6 cm/sec LV V1 max: 139.9 cm/sec MV dec slope: 512.8 cm/sec2 Ao max P.0 mmHg LV V1 max P.8 mmHg Ao V2 mean: 114.1 cm/sec LV V1 mean P.9 mmHg Ao mean P.8 mmHg LV V1 mean: 106.0 cm/sec Ao V2 VTI: 42.0 cm LV V1 VTI: 38.4 cm AV (velocity ratio): 0.91 GEOFFREY(I,D): 2.6 cm2 GEOFFREY(V,D): 2.4 cm2 SV(LVOT): 107.5 ml PA V2 max: 110.8 cm/sec PA max PG (full): 1.8 mmHg ECHO/Echo Complete Interpretation Summary The estimated ejection fraction is 65-70 %. Mild concentric left ventricular hypertrophy. The left atrium is mildly enlarged. Mild (1+) mitral valve insufficiency. Bubble contrast study is negative for PFO/ASD. Ordering Physician: Doris Lujan Performed By: Shaniqua Mock RDCS
[2023-09-15] MEDS: 0.9% Normal Saline (1000mL) 1,000 ML 100 ML IV (23:15)
[2023-09-15 23:27] LABS: Bedside Glucose 130 mg/dL (74-106)
[2023-09-16 00:28] LABS: Troponin-I HS 9 pg/mL (3.0-54.0)
[2023-09-16 02:10] LABS: Troponin-I HS 12 pg/mL (3.0-54.0)
[2023-09-16 02:55] VITALS: BP 158/70; PULSE 56; RESP 18; TEMP 36.8; O2SAT 95
[2023-09-16 04:57] VITALS: BMI 31.4
[2023-09-16 05:00] VITALS: BMI 31.4
[2023-09-16 05:54] LABS: Absolute Lymphocyte Count 2.34 X10^3/uL (0.83-4.51); Absolute Neutrophil Count 8.3 X10^3/uL (2.0-7.7); Basophil# 0.03 X10^3/uL; Basophil% 0.3 % (0-1); Hematocrit 38.4 % (37-47); Hemoglobin 12.6 g/dL (12.0-15.0); Lymphocyte # 2.34 X10^3/ul (0.83-4.51); Lymphocyte % 20.4 % (19-41); Mean Corp Hgb Conc 32.8 g/dL (32-36); Mean Corpuscular Hgb 29.9 pg (27.0-32.0); Mean Corpuscular Volume 91.2 fL (81-99); Mean Platelet Vol. 9.3 fl (6.2-12.0); Monocyte# 0.76 X10^3/uL; Monocyte% 6.6 % (0-10); NRBC Flagged by Analyzer 0 % (0-5); Neutrophil # 8.27 X10^3/uL (2.7-7.7); Neutrophil % 72.3 % (47-70); Platelet Count 268 K/mm3 (150-450); RBC Distribution Width CV 14.3 % (11.6-14.6); RBC Distribution Width SD 47.5 fl (35.1-43.9); Red Blood Count 4.21 M/mm3 (4.2-5.4); White Blood Count 11.5 K/mm3 (4.4-11.0)
[2023-09-16 06:30] VITALS: BP 165/52; PULSE 65; RESP 18; TEMP 36.7; O2SAT 96
[2023-09-16 06:34] LABS: ALB/GLOB Ratio 0.8 RATIO (0.9-2.4); AST(SGOT) 29 U/L (15-37); Alanine Aminotransfer ALT/SGPT 30 U/L (13-56); Albumin, Serum 3.2 g/dL (3.2-5.0); Alkaline Phosphatase 50 U/L (45-117); Anion Gap 6 (5-15); BUN 14 mg/dL (7-18); BUN/Creat Ratio 20.3 RATIO (10-20); Chloride 112 mmol/L (98-107); Cholesterol 209 mg/dL (200); Creatinine, Serum 0.69 mg/dL (0.55-1.02); EST Glomerular Filtration Rate 89 mL/min (>60); Est Glom Filt Rate - Afr Amer 107 mL/min (>60); Estimated Creatinine Clearance 67.67 ml/min; Globulin 3.8 g/dL (2.2-4.2); Glucose 102 mg/dL (74-106); High Density Lipoprotein 55 mg/dL; Sodium Level 142 mmol/L (136-145); Thyroid Stim Hormone (TSH) 1.71 uIU/mL (0.358-3.74); Triglycerides 82 mg/dL; Troponin-I HS 13 pg/mL (3.0-54.0); Very Low Density Lipoprotein 16 mg/dL (5-40)
[2023-09-16 07:06] LABS: Bedside Glucose 103 mg/dL (74-106)
[2023-09-16 07:29] VITALS: O2SAT 93
[2023-09-16 08:50] VITALS: BP 132/49; PULSE 59; RESP 18; TEMP 36.6; O2SAT 96
[2023-09-16] MEDS: LORazepam 2 MG/ML Syringe IV (08:50)
[2023-09-16] MEDS: Enoxaparin 40 MG/0.4 ML Syringe SC (08:52)
[2023-09-16] MEDS: Aspirin 81 MG TAB.CHEW PO (08:52)
[2023-09-16 09:30] LABS: Hemoglobin A1c 5.6 % (3.8-5.6)
--- NOTE | 2023-09-16 09:30 | MRI_ITS ---
HISTORY: CVA, SYNCOPAL EPISODE, VERTIGO. TECHNIQUE: Multiplanar and multisequence MR images of the brain were obtained without contrast. 276 images. COMPARISON: CT prior day. FINDINGS: BRAIN PARENCHYMA: Mild periventricular white matter changes. No abnormal focus of restricted diffusion. No acute intracranial hemorrhage identified. CSF SPACES: Moderate ventriculomegaly and empty sella configuration. No significant midline shift or other mass effect.No extra-axial fluid collection. VASCULAR SYSTEM: Major intracranial flow voids are maintained. PARANASAL SINUSES AND MASTOID AIR CELLS: Maxillary sinus mucosal thickening. ORBITS: Bilateral lens resections. MRI/Brain without Contrast IMPRESSION: No evidence for acute infarct. Ventriculomegaly from atrophy or normal pressure hydrocephalus. Chronic involutional and white matter changes. Electronically Signed: Melody Valverde MD at 11:03 EDT ,
--- NOTE | 2023-09-16 10:28 | CON.PCM.NE_ITS ---
Assessment and Plan: Neuro Assessment/Plan 73 yo woman with CAD s/p CPI, HTN, HLD, HF, DM who presented with an episode of presyncope that happened yesterday, found to have incidental R basal ganglia old stroke on imaging. LDL 138. Diagnosis: Presyncope Remote R basal ganglia infarct- incidental- Type: Small vessel disease Recommendations: - ASA - Atorvastatin 40 mg daily - Obtain A1C level - Secondary stroke prevention with risk factor management: BP <130/90, Statin for LDL <70, diabetes management with A1C< 7%, no smoking, and alcohol in moderation. F/u with PCP in 2 weeks We will sign off. Please call with any questions. I personally attended this patient and spent a total time of 60 minutes evaluating this patient including clinical assessment, review of chart, medical history imaging, and determining appropriate treatment and workup. HPI Consult Data Date of Consult: 09/16/23 HPI Narrative HPI Narrative: 73 yo woman with CAD s/p CPI, HTN, HLD, HF, DM who presented with an episode of presyncope that happened yesterday. CTH showed incidental chronic incidental R basal ganglia CTA with mild intra and extra cranial atherosclerotic changes. Also, chronically occluded proximal left vertebral which is reconstituted distally and then is occluded again at the level of the foramen magnum MRI brain with no acute findings. There is generalized atrophy. PFSH Medical History History of CVA (cerebrovascular accident) History of traumatic brain injury Obesity HLD (hyperlipidemia) HTN (hypertension) Coronary artery disease CHF (congestive heart failure) Diabetes Allergy/AdvReac Type Severity Reaction Status Date / Time No Known Allergies Allergy Verified 09/15/23 14:24 Family History (Updated 09/15/23 @ 21:[address] Doris Lujan MD) Mother Heart disease CAD (coronary artery disease) CVA (cerebral vascular accident) Diabetes Hypertension Father Heart disease CAD (coronary artery disease) Hypertension Valvular heart disease Heart failure Surgical History History of coronary angioplasty with insertion of stent Social History household members: spouse and family Smoking Status: Never smoker alcohol intake: never substance use type: does not use Vital Signs Vital Signs Vital Signs: 09/15/23 14:24 09/15/23 14:25 09/15/23 14:44 Temperature 97.8 F Temperature Source Temporal Pulse Rate 49 L Pulse Rate [Lying] Pulse Rate [Sitting (for 1 minute prior to obtaining)] Pulse Rate [Standing (for 1 minute prior to obtaining)] Respiratory Rate 14 Respiratory Effort Normal Respiratory Depth Respiratory Pattern Normal Blood Pressure 167/73 H Blood Pressure [Lying] Blood Pressure [Sitting (for 1 minute prior to obtaining)] Blood Pressure [Standing (for 1 minute prior to obtaining)] Blood Pressure Mean 104 Blood Pressure Mean [Lying] Blood Pressure Mean [Sitting (for 1 minute prior to obtaining)] Blood Pressure Mean [Standing (for 1 minute prior to obtaining)] Blood Pressure Source Blood Pressure Position Blood Pressure Location Pulse Ox 93 Oxygen Delivery Method Room Air Room Air 09/15/23 15:36 09/15/23 16:00 09/15/23 17:00 Temperature Temperature Source Pulse Rate 48 L 51 L 48 L Pulse Rate [Lying] Pulse Rate [Sitting (for 1 minute prior to obtaining)] Pulse Rate [Standing (for 1 minute prior to obtaining)] Respiratory Rate 12 16 14 Respiratory Effort Respiratory Depth Respiratory Pattern Blood Pressure 135/72 H 133/72 H 180/76 H Blood Pressure [Lying] Blood Pressure [Sitting (for 1 minute prior to obtaining)] Blood Pressure [Standing (for 1 minute prior to obtaining)] Blood Pressure Mean 93 92 110 Blood Pressure Mean [Lying] Blood Pressure Mean [Sitting (for 1 minute prior to obtaining)] Blood Pressure Mean [Standing (for 1 minute prior to obtaining)] Blood Pressure Source Blood Pressure Position Blood Pressure Location Pulse Ox 97 98 98 Oxygen Delivery Method Room Air Room Air Room Air 09/15/23 17:26 09/15/23 18:00 09/15/23 19:00 Temperature Temperature Source Pulse Rate 54 L 55 L Pulse Rate [Lying] 66 Pulse Rate [Sitting (for 1 minute prior to obtaining)] 58 L Pulse Rate [Standing (for 1 minute prior to obtaining)] 60 Respiratory Rate 16 19 H Respiratory Effort Respiratory Depth Respiratory Pattern Blood Pressure 178/126 H 150/75 H Blood Pressure [Lying] 182/64 H Blood Pressure [Sitting (for 1 minute prior to obtaining)] 190/61 H Blood Pressure [Standing (for 1 minute prior to obtaining)] 178/78 H Blood Pressure Mean 143 100 Blood Pressure Mean [Lying] 103 Blood Pressure Mean [Sitting (for 1 minute prior to obtaining)] 104 Blood Pressure Mean [Standing (for 1 minute prior to obtaining)] 111 Blood Pressure Source Blood Pressure Position Blood Pressure Location Pulse Ox 98 95 Oxygen Delivery Method Room Air 09/15/23 20:00 09/15/23 21:00 09/15/23 21:35 Temperature 98.2 F Temperature Source Pulse Rate 70 56 L 56 L Pulse Rate [Lying] Pulse Rate [Sitting (for 1 minute prior to obtaining)] Pulse Rate [Standing (for 1 minute prior to obtaining)] Respiratory Rate 25 H 18 20 H Respiratory Effort Respiratory Depth Respiratory Pattern Blood Pressure 171/61 H 109/97 H 170/70 H Blood Pressure [Lying] Blood Pressure [Sitting (for 1 minute prior to obtaining)] Blood Pressure [Standing (for 1 minute prior to obtaining)] Blood Pressure Mean 97 101 103 Blood Pressure Mean [Lying] Blood Pressure Mean [Sitting (for 1 minute prior to obtaining)] Blood Pressure Mean [Standing (for 1 minute prior to obtaining)] Blood Pressure Source Blood Pressure Position Blood Pressure Location Pulse Ox 96 96 96 Oxygen Delivery Method Room Air Room Air 09/15/23 22:00 09/15/23 22:57 09/15/23 23:05 Temperature 98.4 F Temperature Source Oral Pulse Rate 59 L 57 L Pulse Rate [Lying] Pulse Rate [Sitting (for 1 minute prior to obtaining)] Pulse Rate [Standing (for 1 minute prior to obtaining)] Respiratory Rate 13 18 Respiratory Effort Normal Non-Labored Respiratory Depth Normal Respiratory Pattern Normal Blood Pressure 174/73 H 166/75 H Blood Pressure [Lying] Blood Pressure [Sitting (for 1 minute prior to obtaining)] Blood Pressure [Standing (for 1 minute prior to obtaining)] Blood Pressure Mean 106 105 Blood Pressure Mean [Lying] Blood Pressure Mean [Sitting (for 1 minute prior to obtaining)] Blood Pressure Mean [Standing (for 1 minute prior to obtaining)] Blood Pressure Source Monitor Blood Pressure Position Semi-Fowlers Blood Pressure Location Left Arm Pulse Ox 97 95 Oxygen Delivery Method Room Air Room Air Room Air 09/15/23 23:38 09/16/23 02:55 09/16/23 06:30 Temperature 98.2 F 98.0 F Temperature Source Oral Oral Pulse Rate 56 L 65 Pulse Rate [Lying] Pulse Rate [Sitting (for 1 minute prior to obtaining)] Pulse Rate [Standing (for 1 minute prior to obtaining)] Respiratory Rate 18 18 Respiratory Effort Respiratory Depth Respiratory Pattern Blood Pressure 158/70 H 165/52 H Blood Pressure [Lying] Blood Pressure [Sitting (for 1 minute prior to obtaining)] Blood Pressure [Standing (for 1 minute prior to obtaining)] Blood Pressure Mean 99 89 Blood Pressure Mean [Lying] Blood Pressure Mean [Sitting (for 1 minute prior to obtaining)] Blood Pressure Mean [Standing (for 1 minute prior to obtaining)] Blood Pressure Source Monitor Monitor Blood Pressure Position Supine Semi-Fowlers Blood Pressure Location Right Arm Left Arm Pulse Ox 94 95 96 Oxygen Delivery Method Room Air Room Air Room Air 09/16/23 08:50 Temperature 97.9 F Temperature Source Temporal Pulse Rate 59 L Pulse Rate [Lying] Pulse Rate [Sitting (for 1 minute prior to obtaining)] Pulse Rate [Standing (for 1 minute prior to obtaining)] Respiratory Rate 18 Respiratory Effort Respiratory Depth Respiratory Pattern Blood Pressure 132/49 H Blood Pressure [Lying] Blood Pressure [Sitting (for 1 minute prior to obtaining)] Blood Pressure [Standing (for 1 minute prior to obtaining)] Blood Pressure Mean 76 Blood Pressure Mean [Lying] Blood Pressure Mean [Sitting (for 1 minute prior to obtaining)] Blood Pressure Mean [Standing (for 1 minute prior to obtaining)] Blood Pressure Source Monitor Blood Pressure Position Semi-Fowlers Blood Pressure Location Left Forearm Pulse Ox 96 Oxygen Delivery Method Room Air Weight Weight: 85.6 kg Body Mass Index (BMI) 31.4 EEG Results Procedure Details EEG Procedure Details: RIVKA VEGA is a 73 year old F with a past medical history of , who presents for evaluation of Electroencephalogram on DATE at TIME NIHSS NIHSS Nursing Documentation NIHSS Nursing Documentation: NIH Stroke Scale Start: 09/15/23 19:38 Freq: Status: Discharge Protocol: Activity Type Activity Date Activity User E-sign Co-sign Detail Recorded Client Recorded Date Recorded By Document 09/15/23 20:15 [facility] l 09/15/23 20:16 [facility] 09/15/23 20:15 NIH Stroke Scale [NIHSS] A score of 0 is normal or asymptomatic . Total possible score is 42. Inpatient: RN or Physician to activate a stroke alert for onset of new stroke symptoms or with NIHSS increase >/= 3 points. Following change in neurological status, NIHSS will be performed per physician order or more frequently PRN. -1a. Level of Consciousness Alert; keenly responsive -1b. LOC Questions Answers BOTH questions correctly. -1c. LOC Commands Performs both tasks correctly . -2. Best Gaze Normal -3. Visual No visual loss -4. Facial Palsy Normal symmetrical movements -5a. Left Arm No drift; arm holds 90 (or 45 ) degrees for full 10 seconds -5b. Right Arm No drift; arm holds 90 (or 45 ) degrees for full 10 seconds -6a. Left Leg No drift; leg holds 30-degree position for full 5 seconds -6b. Right Leg No drift; leg holds 30-degree position for full 5 seconds -7. Limb Ataxia Absent -8. Sensory Normal; no sensory loss -9. Best Language No aphasia; normal -10. Dysarthria Normal -11. Extinction and Inattention No abnormality -Total 0 Query Text:A score of 0 is normal or asymptomatic. Total possible score is 42 . ED: Notify Physician for NIHSS increase by > / = 3 points. Inpatient: RN or Physician to activate a stroke alert for NIHSS increase of > / = 3 points. NIHSS: Ischemic Stroke/TIA Start: 09/15/23 22:48 Text: For PCU Patients: NIH and Neuro Check every 4 Status: Active hours, PRN and with change in RN caregiver. Freq: [id number] Protocol: Activity Type Activity Date Activity User E-sign Co-sign Detail Recorded Client Recorded Date Recorded By Document 09/16/23 06:30 [facility] desktop 09/16/23 06:33 [facility] 09/16/23 06:30 -1a. Level of Consciousness Alert; keenly responsive -1b. LOC Questions Answers BOTH questions correctly. -1c. LOC Commands Performs both tasks correctly . -2. Best Gaze Normal -3. Visual No visual loss -4. Facial Palsy Normal symmetrical movements -5a. Left Arm No drift; arm holds 90 (or 45 ) degrees for full 10 seconds -5b. Right Arm No drift; arm holds 90 (or 45 ) degrees for full 10 seconds -6a. Left Leg No drift; leg holds 30-degree position for full 5 seconds -6b. Right Leg No drift; leg holds 30-degree position for full 5 seconds -7. Limb Ataxia Absent -8. Sensory Normal; no sensory loss -9. Best Language No aphasia; normal -10. Dysarthria Normal -11. Extinction and Inattention No abnormality -Total 0 Query Text:A score of 0 is normal or asymptomatic. Total possible score is 42 . ED: Notify Physician for NIHSS increase by > / = 3 points. Inpatient: RN or Physician to activate a stroke alert for NIHSS increase of > / = 3 points. Coma Scale [Assess] -Eye Opening Spontaneous -Motor Obeys Commands -Verbal Oriented [Total] -Coma Scale Total 15 Physical Exam Narrative She is alert oriented following commands appropriately. Face symmetric. No aphasia or dysarthria. All extremities anti gravity. Lab / Micro Data 09/16/23 05:14 09/16/23 05:14 Labs: Laboratory Results - last 24 hr 09/15/23 14:35: WBC 13.5 H, RBC 4.37, Hgb 12.9, Hct 39.5, MCV 90.4, MCH 29.5, MCHC 32.7, RDW Std Deviation 47.3 H, RDW Coeff of Jase 14.3, Plt Count 285, MPV 10.1, Immature Gran % (Auto) 3.800 H, Neut % (Auto) 41.6 L, Lymph % (Auto) 44.6 H, [place] % (Auto) 8.0, Eos % (Auto) 1.3, Baso % (Auto) 0.7, Absolute Neuts (auto) 5.6, Absolute Lymphs (auto) 6.03 H, Nucleated RBC % 0, PT 12.7, INR 1.0, APTT 21.5 L, Sodium 142, Potassium 3.0 L, Chloride 110 H, Carbon Dioxide 26.0, Anion Gap 6, BUN 18, Creatinine 0.83, Estim Creat Clear Calc 66.48, Est GFR (MDRD) Af Amer 87, Est GFR (MDRD) Non-Af 72, BUN/Creatinine Ratio 21.8 H, Glucose 142 H, Calcium 9.2, Total Bilirubin 0.40, Direct Bilirubin 0.11, AST 29, ALT 26, Alkaline Phosphatase 58, Troponin I High Sens 4, Total Protein 7.8, Albumin 3.6, Globulin 4.2, Lipase 66 09/15/23 16:30: Magnesium 2.2, Troponin I High Sens 5 09/15/23 23:00: POC Glucose 130 H 09/15/23 23:39: Troponin I High Sens 9 09/16/23 01:41: Troponin I High Sens 12 09/16/23 05:14: WBC 11.5 H, RBC 4.21, Hgb 12.6, Hct 38.4, MCV 91.2, MCH 29.9, MCHC 32.8, RDW Std Deviation 47.5 H, RDW Coeff of Jase 14.3, Plt Count 268, MPV 9.3, Immature Gran % (Auto) 0.400, Neut % (Auto) 72.3 H, Lymph % (Auto) 20.4, [place] % (Auto) 6.6, Eos % (Auto) 0.0, Baso % (Auto) 0.3, Absolute Neuts (auto) 8.3 H, Absolute Lymphs (auto) 2.34, Nucleated RBC % 0, Sodium 142, Potassium 4.0, Chloride 112 H, Carbon Dioxide 24.0, Anion Gap 6, BUN 14, Creatinine 0.69, Estim Creat Clear Calc 67.67, Est GFR (MDRD) Af Amer 107, Est GFR (MDRD) Non-Af 89, BUN/Creatinine Ratio 20.3 H, Glucose 102, Hemoglobin A1c 5.6, Calcium 9.0, Total Bilirubin 0.60, AST 29, ALT 30, Alkaline Phosphatase 50, Troponin I High Sens 13, Total Protein 7.0, Albumin 3.2, Globulin 3.8, Albumin/Globulin Ratio 0.8 L, Triglycerides 82, Cholesterol 209 H, LDL Cholesterol 138 H, VLDL Cholesterol 16, HDL Cholesterol 55, TSH 1.71 09/16/23 06:38: POC Glucose 103 Imaging Radiology Impression Chest X-Ray 09/15/23 15:45 IMPRESSION: No acute cardiopulmonary pathology Electronically Signed: Praful Springer MD at 16:57 EDT Reading Location ID and State: [facility] / [place] Tel , Service support , Brain CT 09/15/23 18:21 IMPRESSION: Atrophy and mild periventricular white matter ischemic changes. Cannot exclude evolving NPH. Probable subacute to chronic right basal ganglia lacunar infarct and old left cerebellar infarct. No acute bleed. If concern for acute infarct MRI recommended Electronically Signed: Praful Springer MD at 19:28 EDT Reading Location ID and State: [facility] / [place] Tel , Service support , Head/Neck CTA 09/15/23 19:36 IMPRESSION: . Mild atherosclerotic changes of the brain without evidence for hemodynamically significant stenosis or major vessel occlusion. Minor atherosclerotic changes of the cervical carotids. Normal right vertebral. Occluded proximal left vertebral which is reconstituted distally and then is occluded again at the level of the foramen magnum Electronically Signed: Praful Springer MD at 21:37 EDT , Active Medications Active Medications Active Medications: Current Medications Generic Name Dose Route Start Last Admin Trade Name Freq PRN Reason Stop Dose Admin Acetaminophen 650 mg 09/15/23 22:48 Acetaminophen 325 Mg Tablet PO Q4H PRN PRN Fever, pain 1-12/30 Al Hydroxide/Mg Hydroxide 30 ml 09/15/23 22:48 Mag Hydrox/Al Hydrox/Simeth 30 Ml Udc PO Q6H PRN PRN Gastric Burning Albuterol Sulfate 2.5 mg 09/15/23 22:48 Albuterol 2.5 Mg/3 Ml Vial.Neb. INHALATION Q2H PRN PRN Dyspnea, wheezing Aspirin 81 mg 09/16/23 08:00 09/16/23 08:52 Aspirin 81 Mg Tab.Chew PO 81 mg BREAKFAST MARIA ELENA Administration Atorvastatin Calcium 80 mg 09/15/23 22:48 09/15/23 23:14 Atorvastatin Calcium 80 Mg Tablet PO Not Given QHS MARIA ELENA Enoxaparin Sodium 40 mg 09/16/23 10:00 09/16/23 08:52 Enoxaparin 40 Mg/0.4 Ml Syringe SC 40 mg DAILY MARIA ELENA Administration Glucagon 1 mg 09/15/23 22:48 Glucagon 1 Mg/Ml Syringe IM X1 PRN HYPOGLYCEMIA Protocol Guaifenesin 20 ml 09/15/23 22:48 Guaifenesin 10 Ml Udc (200mg/10ml) PO Q4H PRN PRN COUGH Hydralazine HCl 5 mg 09/15/23 22:48 Hydralazine 20 Mg/Ml Vial IV 09/16/23 22:48 Q30M PRN maintain BP parameters with HR <60 Dextrose 250 mls @ 999 mls/hr 09/15/23 22:48 Dextrose 10%-Water IV .Q16M PRN HYPOGLYCEMIA Protocol Sodium Chloride 250 mls @ 15 mls/hr 09/15/23 23:16 IV .[id number] PRN Additional IVPB Infusion Sodium Chloride 250 mls @ 15 mls/hr 09/15/23 23:16 IV .[id number] PRN Saline Flush Insulin Human Lispro 0 unit 09/15/23 22:48 09/16/23 06:40 Insulin Lispro 100 Unit/Ml Insuln.Pen SC Not Given ACHS MARIA ELENA Protocol Lorazepam 0.5 - 1 mg 09/16/23 01:52 09/16/23 08:50 Lorazepam 2 Mg/Ml Syringe IV 0.5 mg X1 PRN Administration Anxiety with MRI Melatonin 3 mg 09/15/23 22:48 Melatonin 3 Mg Tablet PO QHS PRN PRN INSOMNIA Ondansetron HCl 4 mg 09/15/23 22:48 09/15/23 23:08 Ondansetron 4 Mg/2 Ml Vial IV 4 mg Q8H PRN PRN Administration NAUSEA/VOMITING Prochlorperazine Edisylate 5 mg 09/15/23 22:48 Prochlorperazine 10 Mg/2 Ml Vial IV Q4H PRN PRN Breakthrough Nausea/Vomiting Senna/Docusate Sodium 2 tablet 09/15/23 22:48 Senna/Docusate Sodium 1 Tablet PO BID PRN PRN Constipation Sodium Chloride 10 - 40 ml 09/15/23 23:16 0.9% Saline Lock 10 Ml Syringe IV UD PRN SALINE FLUSH
--- NOTE | 2023-09-16 10:50 | NURSING ---
1000 NIHSS assessment delayed because patient was in MRI. Assessment completed upon return to room.
[2023-09-16 11:23] LABS: Bedside Glucose 100 mg/dL (74-106)
[2023-09-16 11:26] VITALS: BMI 31.4
--- NOTE | 2023-09-16 11:55 | CASEMGMT ---
Social Work- Pt reports that she does not have HCPOA and does not wish to complete one at this time. RAQUEL Mcgill
--- NOTE | 2023-09-16 11:56 | CASEMGMT ---
Social Work- SW met with pt to administer PHQ9. Pt scored a 0. SW also completed SDOH assessment; SDOH tripped in error. No needs indicated. SW spoke with pt in regards to self-pay status. Pt reports that the [facility] has agreed to help pay bills. Pt was agreeable to taking Justice Rodriguez, contact information for future need or to pass on to whomever is handling the financial payments. Pt was observed to be pleasant and cooperative in demeanor and engaged fully in discussion. Pt youngest child, her daughter from [place], was present with pt's grandson, 11 yo, in pt room. Pt granted permission to speak with daughter in the room. Pt reports she has been 53 years to her , Rick. Pt shared that she has 7 children, 27 grandchildren, and 12 great grandchildren. Pt second youngest child, Santy, age 30 has downs syndrome and resides at home under the care of pt with assistance of other family. Pt reports that he attends [employer] workshop in [place] several days per week. Pt reports that she has adequate supports in the community. Pt indicates no needs at this time. SW remains available to follow. RAQUEL Mcgill
--- NOTE | 2023-09-16 12:43 | DCINST_ITS ---
Discharge Instructions Diet Discharge Diet: - (DASH diet) Activity Discharge Activity: Return to Normal Activity Follow Up Care Test Results: Test results from this visit will be discussed in further detail at your follow- up appointment, if applicable. Discharge Plan Admission Admit Date/Time: 09/15/23 21:21 Primary Reason for Your Visit: Dizziness Attending Provider: Maite Dill Primary Care Provider: Care Physician,No Primary Consulting Providers: Charlie Ontiveros; Yury Buitrago; Marian Del Toro; Emma Brown; Meena De La Rosa; Chavez Rodriguez; Kiarra Rose; Jose Matthews; Patrick Villegas; Merlin Farfan; Angelica Ruth; Desean Lovell; Colleen Cantor; Mahendra Sebastian; Honey Feng; Mehdi Staples; Anabell Kennedy; Bert Bravo; Eva Garay; Chelsea Chaparro; Doris Lujan Instructions Patient Instructions: Inner Ear Balance, ED Vertigo, Unspecified Additional Instructions / Restrictions: - You will be discharged on aspirin and atorvastatin -Follow-up with your primary care physician within 2 weeks -If you do not have a primary care physician of list of local primary care physicians can be provided for you upon discharge. Please ask for this list prior to discharge Discharge Orders/Prescriptions Prescriptions: New atorvastatin 80 mg Tablet 80 mg PO QHS 30 Days Qty: 30 0RF aspirin 81 mg Tablet,Chewable 81 mg PO BREAKFAST 30 Days Qty: 30 0RF Referrals / Follow Up: Care Physician,No Primary [Primary Care Provider] - ( -If you do not have a primary care physician of list of local primary care physicians can be provided for you upon discharge. Please ask for this list prior to discharge ) Disposition Disposition (needs filled in before D/C Order can be placed): Home, Self Care
--- NOTE | 2023-09-16 12:46 | DS.PCM_ITS ---
Providers Date of Admission: 09/15/23 Date of Discharge: 09/16/23 Primary Care Physician: Nikki Primary Care Phys Consultations 09/15/23 22:48 Consult: Tele-Neurology Routine Consulting Provider: [facility] Reason for Consult: Acute Ischemic Stroke/TIA EMERGENT Consult: No MD Notified: Yes Date Notified: 09/16/23 Time Notified: 00:42 Method of Notification: Answering Service Nursing Unit Staff Notify [facility] of Tele-Neurology Consult: Yes Reason For Visit: LH/DIZZINESS/NEAR SYNCOPE, POSSIBLE CVA Diagnosis Discharge Diagnosis (1) Near syncope: Status: Acute Code(s): R55 - Syncope and collapse (2) Vertigo: Status: Acute Code(s): R42 - Dizziness and giddiness Plan Asa, statin, f/u outpt w/ pcp Medications at Discharge Home Medications aspirin 81 mg chewable tablet 81 mg PO BREAKFAST 30 days #30 tabs 09/16/23 atorvastatin 80 mg tablet 80 mg PO QHS 30 days #30 tabs 09/16/23 meclizine 12.5 mg tablet 12.5 mg PO BID PRN PRN DIZZINESS #7 tabs 09/16/23 Hospital Course Procedures Transthoracic echo Summary of Care Provided Minutes Spent on Discharge: 33 Hospital Course: Per HPI: The patient is a 73 y/o F w/ PMHx: CAD s/p remote PCI, HTN, HLD, HF unclear type, Hx prior traumatic brain hemorrhage (occipital) following mechanical fall, Diabetes mellitus type II, Obesity who presents to the [facility] ED on 09/15/23 with history of near syncopal episode reportedly in her normal state of health leaving home at approximately 1130 to have lunch with her and her sisters as it was her birthday reportedly transitioning from lunch to go shopping and while she was standing in line she became very hot and lightheaded requiring her to sit down with sensation that she was going to pass out with no recent chest pain, dyspnea, abdominal pain however she did have then nausea and bout of emesis eventually improving but given this finding prompted eventual ED evaluation. She does report history of occasional vertigo. She currently states that during this episode she did not have any sensation of room spinning. She does report that she had onset of a headache on the top part of her head described as an aching 3 out of 10 with no light or sound sensitivity that started after the onset of her lightheadedness, dizziness and bouts of nausea and emesis. Patient reports that she follows with osteopathic medicine and does not take any medications. Workup in the ED included T97.8, heart rate 49, BP 167/73, respiratory rate 93, orthostatics not marked appearing, most recent repeat vitals heart rate 70, BP 171/61, respiratory rate 25, 96% room air, CBC with WC of 13.5, hemoglobin 12.9, platelets 285 with left shift and lymphocytosis, coags with PTT 21.5 otherwise not marked appearing, CMP with potassium 3.0, chloride 110, glucose 142, magnesium 2.2, hepatic profile not marked appearing, troponin initial 4 and repeat delta 5, chest x-ray with no acute cardiopulmonary findings, CT brain with atrophy and mild periventricular white matter ischemic changes with inability to exclude evolving NPH, probable subacute to chronic right basal ganglier lacunar infarct and an old left cerebellar infarct with no evidence of any acute bleed, CTA head and neck pending upon evaluation, EKG with sinus bradycardia with first-degree AV block with no acute evidence of ischemia with no comparison. In the ED patient ministered potassium chloride 40 mill equivalent p.o. x 1, Zofran 4 mg IV x 1, Tylenol 1000 mg p.o. x 1, Valium 5 mg p.o. x 1. INTERVAL HISTORY: MRI negative for acute stroke, symptoms completely resolved after last night and discussing with patient this morning sounds like symptoms were consistent with vertigo. Talked with neurology who recommended aspirin and statin for secondary prevention due to previous stroke seen on MRI and to follow-up with PCP. Patient asked about medication to help if she had any more attacks like this that were consistent with vertigo, discussed risks and benefits of meclizine as well as indications and when to take it and also what to look out for. Patient verbalized understanding. Patient symptoms completely resolved on day of discharge and has no further complaints. Physical Exam Narrative General: Alert, oriented, no apparent distress HEENT: Atraumatic, normocephalic Eyes: Anicteric, normal conjunctiva, extraocular movements intact, pupils equal Neck: Supple Respiratory: Clear to auscultation bilaterally, normal respiratory effort Cardiovascular: Regular rate and rhythm GI: Soft, nontender, nondistended Extremities: No edema Musculoskeletal: Strength 5 out of 5 in right upper extremity, 5 out of 5 left upper extremity, 5 out of 5 right lower extremity, 5 out of 5 left lower extremity Neuro: No overt focal neurological deficits, cranial nerves II through XII intact, [id number] without significant difficulty bilaterally Skin: No rashes appreciated Psych: Cooperative Weight / BMI Weight Weight: 85.6 kg Body Mass Index (BMI) 31.4 ABG / Lab / Microbiology Data 09/16/23 05:14 09/16/23 05:14 Laboratory: Laboratory Results - last 24 hr 09/15/23 14:35: WBC 13.5 H, RBC 4.37, Hgb 12.9, Hct 39.5, MCV 90.4, MCH 29.5, MCHC 32.7, RDW Std Deviation 47.3 H, RDW Coeff of Jase 14.3, Plt Count 285, MPV 10.1, Immature Gran % (Auto) 3.800 H, Neut % (Auto) 41.6 L, Lymph % (Auto) 44.6 H, [place] % (Auto) 8.0, Eos % (Auto) 1.3, Baso % (Auto) 0.7, Absolute Neuts (auto) 5.6, Absolute Lymphs (auto) 6.03 H, Nucleated RBC % 0, PT 12.7, INR 1.0, APTT 21.5 L, Sodium 142, Potassium 3.0 L, Chloride 110 H, Carbon Dioxide 26.0, Anion Gap 6, BUN 18, Creatinine 0.83, Estim Creat Clear Calc 66.48, Est GFR (MDRD) Af Amer 87, Est GFR (MDRD) Non-Af 72, BUN/Creatinine Ratio 21.8 H, Glucose 142 H, Calcium 9.2, Total Bilirubin 0.40, Direct Bilirubin 0.11, AST 29, ALT 26, Alkaline Phosphatase 58, Troponin I High Sens 4, Total Protein 7.8, Albumin 3.6, Globulin 4.2, Lipase 66 09/15/23 16:30: Magnesium 2.2, Troponin I High Sens 5 09/15/23 23:00: POC Glucose 130 H 09/15/23 23:39: Troponin I High Sens 9 09/16/23 01:41: Troponin I High Sens 12 09/16/23 05:14: WBC 11.5 H, RBC 4.21, Hgb 12.6, Hct 38.4, MCV 91.2, MCH 29.9, MCHC 32.8, RDW Std Deviation 47.5 H, RDW Coeff of Jase 14.3, Plt Count 268, MPV 9.3, Immature Gran % (Auto) 0.400, Neut % (Auto) 72.3 H, Lymph % (Auto) 20.4, [place] % (Auto) 6.6, Eos % (Auto) 0.0, Baso % (Auto) 0.3, Absolute Neuts (auto) 8.3 H, Absolute Lymphs (auto) 2.34, Nucleated RBC % 0, Sodium 142, Potassium 4.0, Chloride 112 H, Carbon Dioxide 24.0, Anion Gap 6, BUN 14, Creatinine 0.69, Estim Creat Clear Calc 67.67, Est GFR (MDRD) Af Amer 107, Est GFR (MDRD) Non-Af 89, BUN/Creatinine Ratio 20.3 H, Glucose 102, Hemoglobin A1c 5.6, Calcium 9.0, Total Bilirubin 0.60, AST 29, ALT 30, Alkaline Phosphatase 50, Troponin I High Sens 13, Total Protein 7.0, Albumin 3.2, Globulin 3.8, Albumin/Globulin Ratio 0.8 L, Triglycerides 82, Cholesterol 209 H, LDL Cholesterol 138 H, VLDL Cholesterol 16, HDL Cholesterol 55, TSH 1.71 09/16/23 06:38: POC Glucose 103 09/16/23 11:01: POC Glucose 100 Radiography Diagnostic Testing: Radiology Impression Chest X-Ray 09/15/23 15:45 IMPRESSION: No acute cardiopulmonary pathology Electronically Signed: Praful Springer MD at 16:57 EDT , Brain CT 09/15/23 18:21 IMPRESSION: Atrophy and mild periventricular white matter ischemic changes. Cannot exclude evolving NPH. Probable subacute to chronic right basal ganglia lacunar infarct and old left cerebellar infarct. No acute bleed. If concern for acute infarct MRI recommended Electronically Signed: Praful Springer MD at 19:28 EDT , Head/Neck CTA 09/15/23 19:36 IMPRESSION: . Mild atherosclerotic changes of the brain without evidence for hemodynamically significant stenosis or major vessel occlusion. Minor atherosclerotic changes of the cervical carotids. Normal right vertebral. Occluded proximal left vertebral which is reconstituted distally and then is occluded again at the level of the foramen magnum Electronically Signed: Praful Springer MD at 21:37 EDT , Brain MRI 09/16/23 09:30 IMPRESSION: No evidence for acute infarct. Ventriculomegaly from atrophy or normal pressure hydrocephalus. Chronic involutional and white matter changes. Electronically Signed: Melody Valverde MD at 11:03 EDT , D/C Instructions Discharge Diet: - (DASH diet) Discharge Activity: - (Increase activity as tolerated) Meaningful Use Info Meaningful Use Meaningful Use Diagnoses (Choose all that apply): None applicable Ischemic Stroke Statin Dosing Therapy Reference: STATIN DOSE THERAPY REFERENCE: * Patients > 75 years receive moderate or high dose statin therapy. * Patients 75 years or YOUNGER should receive HIGH intensity statin dose unless contraindicated. You will be required to document reason for non-treatment if statin daily dose does not meet guidelines. HIGH DOSE STATIN THERAPY DAILY Atorvastatin > than or = to 40 mg Rosuvastatin > than or = to 20 mg Amlodipine + Atorvastatin > than or = to 2.5/40 mg Ezetimibe + Simvastatin 10/80 mg Simvastatin 80mg Discharge Plan Admission Admit Date/Time: 09/15/23 21:21 Primary Reason for Your Visit: Dizziness Attending Provider: Maite Dill Primary Care Provider: Care Physician,No Primary Consulting Providers: Charlie Ontiveros; Yury Buitrago; Marian Del Toro; Emma Brown; Meena De La Rosa; Chavez Rodriguez; Kiarra Rose; Jose Matthews; Patrick Villegas; Merlin Farfan; Angelica Ruth; Desean Lovell; Colleen Cantor; Mahendra Sebastian; Honey Feng; Mehdi Staples; Anabell Kennedy; Bert Bravo; Eva Garay; Chelsea Chaparro; Doris Lujan Instructions Patient Instructions: Inner Ear Balance, ED Vertigo, Unspecified Additional Instructions / Restrictions: - You will be discharged on aspirin and atorvastatin -Follow-up with your primary care physician within 2 weeks -If you do not have a primary care physician of list of local primary care physicians can be provided for you upon discharge. Please ask for this list prior to discharge Discharge Orders/Prescriptions Prescriptions: New atorvastatin 80 mg Tablet 80 mg PO QHS 30 Days Qty: 30 0RF aspirin 81 mg Tablet,Chewable 81 mg PO BREAKFAST 30 Days Qty: 30 0RF meclizine 12.5 mg Tablet 12.5 mg PO BID PRN PRN (Reason: DIZZINESS) Qty: 7 0RF Referrals / Follow Up: Care Physician,No Primary [Primary Care Provider] - ( -If you do not have a primary care physician of list of local primary care physicians can be provided for you upon discharge. Please ask for this list prior to discharge ) Disposition Disposition (needs filled in before D/C Order can be placed): Home, Self Care Charges/Coding Visit Charges Inpatient E&M: 22801 Disch Hosp >30min
--- NOTE | 2023-09-16 13:29 | CASEMGMT ---
Patient has order for discharge. RN CM in to discuss needs at discharge. Patient denies needs or help at discharge. Patient had no further questions or concerns.
--- NOTE | 2023-09-16 15:36 | PHA.DC.MC.R ---
Pharmacy [facility] has performed discharge medication reconciliation and counseling for this patient. 1. ASPIRIN 81MG PO BREAKFAST 2. ATORVASTATIN 80MG PO QHS 3. MECLIZINE 12.5MG PO BID PRN DIZZINESS The patient's discharge medication list was reviewed for discrepancies and discrepancies were resolved. The patient was counseled on the following discharge medications and changes in medications for homegoing were reviewed. The Reason for Use, instructions for use, and potential side effects were reviewed for all new medications. The patient's questions regarding all of their medications were answered. The patient was able to verbally demonstrate an understanding of their discharge medications. Patient counseled by clinical pharmacy managerClementina. Medications at Discharge Home Medications aspirin 81 mg chewable tablet 81 mg PO BREAKFAST 30 days #30 tabs 09/16/23 atorvastatin 80 mg tablet 80 mg PO QHS 30 days #30 tabs 09/16/23 meclizine 12.5 mg tablet 12.5 mg PO BID PRN PRN DIZZINESS #7 tabs 09/16/23
== END 2023-09-16 12:45 | disposition home or self-care (01) ==
LOC: ED 16:00 → PCU 22:00
PROVIDERS: Admitting Provider Family Medicine; Emergency Provider Emergency Medicine; Visit Provider Internal Medicine
DX: R55 Syncope and collapse (principal); I11.0 Hypertensive heart disease with heart failure; I50.9 Heart failure, unspecified; E11.9 Type 2 diabetes mellitus without complications; I25.10 Atherosclerotic heart disease of native coronary artery without angina pectoris; E78.5 Hyperlipidemia, unspecified; R11.2 Nausea with vomiting, unspecified; Z86.73 Personal history of transient ischemic attack (TIA), and cerebral infarction without residual deficits; Z95.5 Presence of coronary angioplasty implant and graft; R42 Dizziness and giddiness; E66.9 Obesity, unspecified; Z68.32 Body mass index [BMI] 32.0-32.9, adult; E87.6 Hypokalemia
CPT/HCPCS: 36415; 70450; 70496; 70498; 70551; 71045; 80048; 80053; 80061; 80076; 82962; 83036; 83690; 83735; 84443; 84484; 85025; 85610; 85730; 92610; 93005; 93306; 94668; 94762; 96361; 96372; 96374; 96375; 96376; 97162; 99221; 99285; J7030; Q9967; A4216; G0378; J2405

== ENCOUNTER 2023-11-14 15:48 | Emergency (ER) | payer OTHER, SELFPAY ==
[2023-11-14 15:48] VITALS: BP 146/85; PULSE 68; RESP 16; O2SAT 97
[2023-11-14 15:49] VITALS: BP 146/85; PULSE 64; RESP 18; TEMP 35.6; O2SAT 98; BMI 32.3
[2023-11-14 15:54] VITALS: TEMP 36.1
--- NOTE | 2023-11-14 16:11 | ED.VIS.FALL ---
HPI HPI - Fall History of Present Illness Chief Complaint: Fall PFSH PFSH Medical History History of CVA (cerebrovascular accident) History of traumatic brain injury Obesity HLD (hyperlipidemia) HTN (hypertension) Coronary artery disease CHF (congestive heart failure) Diabetes Home Medications ?Medication ?Instructions ?Recorded ?Last Taken ?Type aspirin 81 mg chewable tablet 81 mg PO BREAKFAST 30 days #30 tabs 09/16/23 Unknown Rx atorvastatin 80 mg tablet 80 mg PO QHS 30 days #30 tabs 09/16/23 Unknown Rx meclizine 12.5 mg tablet 12.5 mg PO BID PRN PRN DIZZINESS 09/16/23 Unknown Rx #7 tabs Allergy/AdvReac Type Severity Reaction Status Date / Time No Known Allergies Allergy Verified 09/15/23 14:24 Family History Mother Heart disease CAD (coronary artery disease) CVA (cerebral vascular accident) Diabetes Hypertension Father Heart disease CAD (coronary artery disease) Hypertension Valvular heart disease Heart failure Surgical History History of coronary angioplasty with insertion of stent Social History household members: spouse and family Smoking Status: Never smoker alcohol intake: never substance use type: does not use EXAM Physical Exam Const Vital Signs: 11/14/23 15:48 11/14/23 15:49 11/14/23 15:54 Temperature 96.0 F L 97.0 F L Temperature Source Temporal Pulse Rate 68 64 Respiratory Rate 16 18 Respiratory Effort Normal Respiratory Depth Normal Respiratory Pattern Normal Blood Pressure 146/85 H 146/85 H Blood Pressure Mean 105 105 Pulse Ox 97 98 Oxygen Delivery Method Room Air Room Air Room Air 11/14/23 17:48 11/14/23 19:00 Temperature Temperature Source Pulse Rate 62 63 Respiratory Rate 18 18 Respiratory Effort Respiratory Depth Respiratory Pattern Blood Pressure 190/61 H 178/63 H Blood Pressure Mean 104 101 Pulse Ox 96 96 Oxygen Delivery Method Room Air Room Air MDM MDM MDM Narrative Medical decision making narrative: HISTORY OF PRESENT ILLNESS: 73-year-old female presents after a fall. Notes I was dizzy and I fell. She endorsed history of vertigo and states her symptoms are similar to prior episodes of vertigo. She endorses left shoulder pain head pain and a injury to her forehead. No she felt dizzy had a mechanical fall from standing injuring her head. She denies chest pain, shortness of breath. Denies focal numbness weakness or loss sensation. Per the patient's she did not lose consciousness. The patient denies recent surgery in the last 4 weeks or immobilization in the last 3 days, denies previous diagnosis of DVT or PE, hemoptysis, unilateral leg swelling or malignancy with treatment the last 6 months or palliative. No estrogen use noted. Denies leg swelling. Denies any recent volume loss such as vomiting or diarrhea. Denies difficulty urinating. REVIEW OF SYSTEMS: Pertinent positives: Dizziness, left shoulder pain, head pain, injury to forehead Pertinent negatives: Vomiting, urinary complaints, chest pain, shortness of breath PHYSICAL EXAM: Nursing triage notes reviewed, Vital signs reviewed Primary Survey Airway: Intact Breathing: Bilateral breath sounds Circulation: Palpable bilateral femorals, Palpable bilateral radial, Palpable bilateral DP and Palpable bilateral PT Disability / Spine precautions GCS Score: Eye Openin Verbal Response: 5 Motor Response: 6 Secondary Survey Constitutional: Please see MDM Head: 2 cm linear superficial laceration noted to left forehead, midface stable, NO jaw malocclusion, No Cephalohematoma, Eye: Pupils equal round and reactive to light, Extraocular muscles intact and No periorbital ecchymosis or stepoff, no evidence of entrapment ENT: Oropharynx clear, no lacerations, no hemotympanum, no raccoon eyes or allison sign Cervical spine / Neck: No cervical spine bony tenderness, crepitance, or stepoff deformity Trachea midline Lungs: Clear to auscultation, No asymmetric rise and No crepitus, no flail chest Cardiac: Regular rate and rhythm and No murmurs Abdomen: Soft, Nontender and No rebound Pelvis: Pelvis stable to compression : No evidence of genital injury Back: No midline bony tenderness to thoracic/lumbar/sacral spines Neuro: At baseline, intact strength and sensation in bilateral upper and lower extremities. 2+ patellar reflexes bilaterally. Extremities: NO gross Deformities Psych: Normal affect Nursing triage notes reviewed, Vital signs reviewed MEDICAL DECISION MAKING: Chief Complaint: Fall External records reviewed: Imaging reviewed: CT scan of the brain from August 2023 shows no acute bleeding. But noted subacute to chronic right basal ganglier lacunar infarct MDM Narrative: Patient was hemodynamically stable, afebrile, nontoxic-appearing. Primary secondary trauma surveys were concerning for I considered the following differential diagnosis: Intracranial hemorrhage, cervical spine bony abnormality, arrhythmia, anemia, electro disturbance, dehydration, ACS, PE While considered pulmonary embolism as a potential etiology of the patient's fall she had no chest pain, no shortness of breath has no VTE risk factors suggest PE. I considered obtaining a CT of the chest however thought this was not indicated at this time given lack of stroke risk factors, physical exam findings etc. ALL IMAGES (IF OBTAINED) HAVE BEEN PERSONALLY REVIEWED AND INTERPRETED BY MYSELF. EKG with normal sinus rhythm, left axis deviation, normal intervals, no STEMI CBC with no leukocytosis, with anemia, no thrombocytopenia BMP with mild hypokalemia otherwise no signs of BERNICE, metabolic acidosis or endorgan hypoperfusion High-sensitivity troponin is negative, no evidence of myocardial ischemia I have personally reviewed the patient's chest x-ray. Chest x-ray is unremarkable for pulmonary edema, pneumothorax, pneumonia or focal cardiopulmonary abnormality. X-ray of the left shoulder was read and interpreted by myself and shows no evidence of obvious bony abnormality CT scan of the head cervical spine show evidence of obvious intracranial traumatic abnormality or cervical spine abnormality Delta troponin elevated rules and by our high-sensitivity protocol. This concerning for myocardial ischemia will require admission for cardiology consultation, serial biomarkers, echocardiogram and possibly cardiac catheterization At approximately 6:30 PM discussed with the patient and the need for admission given elevated troponin. The patient is alert and orient x 3 and a capacity to make her own medical symptoms and chose to be discharged home. AMA note: I have recommended admission to the hospital, but the patient refuses. The risks (including but not limited to suffering and ) as well as the benefits were explained to the patient. Questions were sought and answered, the patient voiced understanding and accepts these risks. I have encouraged the patient to return to have their evaluation completed as we are glad to do so. Patient had capacity to make his or her own medical decisions. Patient was alert and orient x3 and of sound mind at time of discussion. I have also instructed the patient on the importance of follow-up and to return for any worsening or worrisome concerns. The patient appears competent to make medical decisions at this time. The patient suffered lacerations to the left forehead. On exam there was no evidence of foreign bodies. No galeal involvement. There was no evidence of neurovascular injury. Patient had a normal distal vascular exam, and had intact ROM and sensation. There was also no evidence of tendon injury, with normal distal full range of motion, flexion, extension, abduction, abduction. There is no evidence of local joint space involvement at this time. Wound care applied (irrigation and/or local cleansing solution). Laceration repair was then performed please see procedure note. The patient was given signs and symptoms warnings for infection, such as increasing pain, redness, swelling, associated heat, pus or fever. Patient was given instructions for timely follow-up for removal. Patient agreed with the plan of care Procedure: Laceration repair. The procedure was performed by myself. Indication: Wound repair Risks and benefits: risks, benefits and alternatives were discussed Consent: Consent was obtained. Wound Details: Linear laceration noted to left forehead, approximately 1 cm in length, 1 mm in depth, no deeper structures involved including the galea, no foreign bodies. Anesthesia: Used topical let as well as local 1% lidocaine without epi (verbal consent obtained from patient). Wound prep: Patient was prepped and draped in the usual sterile fashion. Tetanus: Is not up-to-date, patient refused Boostrix. Irrigation Solution: Saline Wound Preparation: Irrigated normal saline, cleaned chlorhexidine The wound was explored to its base in a bloodless field. Procedure Description: Placed for simple interrupted, 4-0 Vicryl absorbable sutures Patient tolerated the procedure well with no immediate complications The patient and/or family, caregivers express understanding. The patient and/or family, caregivers agrees with the plan. Shared decision making: I will have a discussion with the patient and or visitors regarding risk/benefits of further testing or admission. They will be made aware of of the risk/benefits inherent in this decision they will be given the opportunity to voice understanding. Total critical care time today provided was at least 0 minutes. This excludes separately billable procedures. Critical care time (if documented) is secondary to the patient having high probability of clinically significant/life threatening deterioration in the patient's condition which required my urgent intervention. Impression: 1. Dizziness 2. Syncope 3. NSTEMI 4. Hypertension Dispo: AMA This note was generated with Xitronixation software. It may contain incorrect words, spelling, and punctuation that were not noted in review of the chart prior to signing. Lab Data Labs: Laboratory Results - last 24 hr 11/14/23 11/14/23 11/14/23 15:50 17:44 18:15 WBC 12.8 H RBC 4.06 L Hgb 11.9 L Hct 36.9 L MCV 90.9 MCH 29.3 MCHC 32.2 RDW Std Deviation 47.9 H RDW Coeff of Jase 14.2 Plt Count 273 MPV 9.4 Immature Gran % (Auto) 1.000 H Neut % (Auto) 65.7 Lymph % (Auto) 23.1 [place] % (Auto) 8.3 Eos % (Auto) 1.4 Baso % (Auto) 0.5 Absolute Neuts (auto) 8.4 H Absolute Lymphs (auto) 2.94 Nucleated RBC % 0 Sodium 142 Potassium 3.4 L Chloride 109 H Carbon Dioxide 26.0 Anion Gap 7 BUN 13 Creatinine 0.70 Estim Creat Clear Calc 68.62 Est GFR (MDRD) Af Amer 105 Est GFR (MDRD) Non-Af 87 BUN/Creatinine Ratio 18.5 Glucose 130 H Calcium 9.2 Troponin I High Sens 14 60 H Urine Color Yellow Urine Clarity Clear Urine pH 6.5 Ur Specific [place] 1.010 Urine Protein 15 H Urine Glucose (UA) Normal Urine Ketones Negative Urine Occult Blood 10 H Urine Nitrite Negative Urine Bilirubin Negative Urine Urobilinogen Normal Ur Leukocyte Esterase 100 H Urine RBC 0 SEEN Urine WBC 0 SEEN Ur Squamous Epith Cells 0 SEEN Urine Bacteria 0 SEEN Urine Mucus 0 SEEN Radiography Diagnostic Testing: Clinical Impression(s) from Imaging Studies Brain CT 11/14/23 16:27 IMPRESSION: Small left frontal scalp hematoma. No fracture or intracranial hemorrhage. Electronically Signed: Michoacano Romero MD at 17:46 EDT , Cervical Spine CT 11/14/23 16:28 IMPRESSION: No evidence of acute cervical spinal fracture or spondylolisthesis. Severe multilevel degenerative disc disease and spondylosis. Electronically Signed: Michoacano Romero MD at 17:47 EDT , Shoulder X-Ray 11/14/23 16:28 IMPRESSION: No acute abnormalities. Electronically Signed: Michoacano Romero MD at 17:50 EDT , Chest X-Ray 11/14/23 17:18 IMPRESSION: No acute radiographic abnormalities. Electronically Signed: Michoacano Romero MD at 17:47 EDT , Discharge Plan Triage Chief Complaint: Fall ED Provider: Magdiel Haider Dx/Rx/DC Orders Prescriptions: No Action atorvastatin 80 mg Tablet 80 mg PO QHS 30 Days Qty: 30 0RF aspirin 81 mg Tablet,Chewable 81 mg PO BREAKFAST 30 Days Qty: 30 0RF meclizine 12.5 mg Tablet 12.5 mg PO BID PRN PRN (Reason: DIZZINESS) Qty: 7 0RF Primary Care Provider: Care Physician,No Primary Referrals: Care Physician,No Primary [Primary Care Provider] - Print Language: [place] Citizen
--- NOTE | 2023-11-14 16:27 | CT_ITS ---
EXAMINATION : Head CT w/out contrast HISTORY : fall, head trauma COMPARISON : None. TECHNIQUE : Multiple contiguous axial images were obtained from the skull base to the vertex without intravenous contrast. A radiation dose optimization technique was used for this scan. FINDINGS : The ventricles and sulci are normal in size. There is no evidence for acute intracranial hemorrhage, mass effect, or midline shift. There is no extra-axial fluid collection. There is normal gomez-white differentiation, without CT evidence of acute ischemia or infarct. The skull base and calvarium are unremarkable. The orbits are unremarkable. The paranasal sinuses are clear. The mastoid air cells are well-aerated. Small left frontal scalp hematoma. CT/Brain/Head without Contrast IMPRESSION: Small left frontal scalp hematoma. No fracture or intracranial hemorrhage. Electronically Signed: Michoacano Romero MD at 17:46 EDT ,
--- NOTE | 2023-11-14 16:27 | EKG12_ITS ---
Test Reason : Blood Pressure : / mmHG Vent. Rate : 065 BPM Atrial Rate : 065 BPM P-R Int : 196 ms QRS Dur : 090 ms QT Int : 438 ms P-R-T Axes : 045 -07 017 degrees QTc Int : 455 ms Normal sinus rhythm Nonspecific T wave abnormality Abnormal ECG Confirmed by Santy Coppola ([id number]), web editor VERNA VINCENT ([id number]) on 11/16/2023 10:30:30 AM Referred By: Confirmed By:Santy Coppola
--- NOTE | 2023-11-14 16:28 | CT_ITS ---
INDICATION: neck pain EXAMINATION: CT CERVICAL SPINE - CT Spine Cervical W/O Contrast Injection TECHNIQUE: Helically acquired images were obtained of the cervical spine. 2D reformatted images were reviewed. A radiation dose optimization technique was used for this scan. IV Contrast dosage and agent: None. COMPARISON: None. FINDINGS: VERTEBRAE: No fracture or traumatic subluxation. No discrete lytic or blastic abnormality. Normal alignment. Normal craniocervical junction and cervicothoracic junction. DISCS and SPINAL CANAL: Severe multilevel degenerative disc disease and spondylosis. No critical stenosis. NECK SOFT TISSUES: No prevertebral soft tissue swelling. There is no cervical adenopathy. LUNG APICES: Clear. CT/Spine Cervical without Contras IMPRESSION: No evidence of acute cervical spinal fracture or spondylolisthesis. Severe multilevel degenerative disc disease and spondylosis. Electronically Signed: Michoacano Romero MD at 17:47 EDT ,
--- NOTE | 2023-11-14 16:28 | RAD_ITS ---
INDICATION: left shoulder pain EXAMINATION/TECHNIQUE: X-RAY - LEFT XR Shoulder Min 2 Views 4 VIEWS COMPARISON: No relevant prior comparison study available FINDINGS: SOFT TISSUES: No soft tissue swelling or gas. No radiopaque foreign body. BONES/JOINTS: No acute fracture or subluxation.. Normal alignment. Mild degenerative changes of the glenohumeral and acromioclavicular joints.. No sclerotic or destructive changes observed. RAD/Shoulder min 2 Views IMPRESSION: No acute abnormalities. Electronically Signed: Michoacano Romero MD at 17:50 EDT ,
[2023-11-14 16:38] LABS: Absolute Lymphocyte Count 2.94 X10^3/uL (0.83-4.51); Absolute Neutrophil Count 8.4 X10^3/uL (2.0-7.7); Basophil# 0.06 X10^3/uL; Basophil% 0.5 % (0-1); Eosinophil# 0.18 X10^3/uL; Eosinophils% 1.4 % (0-5); Hematocrit 36.9 % (37-47); Hemoglobin 11.9 g/dL (12.0-15.0); Lymphocyte # 2.94 X10^3/ul (0.83-4.51); Lymphocyte % 23.1 % (19-41); Mean Corp Hgb Conc 32.2 g/dL (32-36); Mean Corpuscular Hgb 29.3 pg (27.0-32.0); Mean Corpuscular Volume 90.9 fL (81-99); Mean Platelet Vol. 9.4 fl (6.2-12.0); Monocyte# 1.06 X10^3/uL; Monocyte% 8.3 % (0-10); NRBC Flagged by Analyzer 0 % (0-5); Neutrophil # 8.38 X10^3/uL (2.7-7.7); Neutrophil % 65.7 % (47-70); Platelet Count 273 K/mm3 (150-450); RBC Distribution Width CV 14.2 % (11.6-14.6); RBC Distribution Width SD 47.9 fl (35.1-43.9); Red Blood Count 4.06 M/mm3 (4.2-5.4); White Blood Count 12.8 K/mm3 (4.4-11.0)
[2023-11-14] MEDS: Meclizine HCl 25 MG Tablet PO (16:50)
[2023-11-14] MEDS: 0.9% Normal Saline (500mL Bag) 500 ML 1000 ML IV (16:52)
[2023-11-14] MEDS: Lidocaine/Epi/Tetracaine 50 ML 1 APPLIC TOPICAL (16:52)
[2023-11-14 16:57] LABS: Anion Gap 7 (5-15); BUN 13 mg/dL (7-18); BUN/Creat Ratio 18.5 RATIO (10-20); Calcium,Total 9.2 mg/dL (8.5-10.1); Chloride 109 mmol/L (98-107); EST Glomerular Filtration Rate 87 mL/min (>60); Est Glom Filt Rate - Afr Amer 105 mL/min (>60); Estimated Creatinine Clearance 68.62 ml/min; Glucose 130 mg/dL (74-106); Potassium 3.4 mmol/L (3.5-5.1); Sodium Level 142 mmol/L (136-145); Troponin-I HS 14 pg/mL (3.0-54.0)
--- NOTE | 2023-11-14 17:18 | RAD_ITS ---
INDICATION: dizziness EXAMINATION/TECHNIQUE: X-RAY - XR Chest 1 View COMPARISON: None. FINDINGS: The lungs are clear. Tortuous and calcified thoracic aorta. The heart is mildly enlarged. No pleural effusion or pneumothorax. Degenerative changes of the thoracic spine. RAD/Chest 1 View (Portable) IMPRESSION: No acute radiographic abnormalities. Electronically Signed: Michoacano Romero MD at 17:47 EDT ,
[2023-11-14] MEDS: Lidocaine 1% (20 ml mdv) 20 ML Vial 5 ML INFILT (17:47)
[2023-11-14 17:48] VITALS: BP 190/61; PULSE 62; RESP 18; O2SAT 96
[2023-11-14] MEDS: Ketorolac 15 MG/ML Vial IV (18:05)
[2023-11-14 18:11] LABS: Troponin-I HS 60 pg/mL (3.0-54.0)
[2023-11-14] MEDS: Aspirin 325 MG Tablet PO (18:27)
[2023-11-14 18:34] LABS: Bacteria 0 SEEN /hpf (None Seen); Mucous, Urine 0 SEEN /hpf (<or=2+); Red Blood Cells-Urine 0 SEEN /hpf (0-5); Squamous Epithelial Cells - UA 0 SEEN /hpf (5-10); White Blood Cells 0 SEEN /hpf (0-5)
[2023-11-14 18:42] LABS: Color, Urine Yellow (Yellow); Glucose, Dipstick Normal (Normal); Ketone-Dipstick Negative (Negative); Leukocyte Esterase-Dipstick 100 /ul (Negative); Nitrite-Dipstick Negative (Negative); Occult Blood-Urine 10 /ul (Negative); Protein-Dipstick 15 mg/dl (Negative); Urine Bilirubin Dipstick Negative (Negative); Urine Clarity Clear (Clear); Urine Urobilinogen Normal (Normal); Urine pH 6.5 (5.0 - 8.0)
[2023-11-14 19:00] VITALS: BP 178/63; PULSE 63; RESP 18; O2SAT 96
[2023-11-14 20:04] VITALS: BP 168/64; PULSE 62; RESP 17; TEMP 36.8; O2SAT 96
== END 2023-11-14 20:04 | disposition left against medical advice (07) ==
PROVIDERS: Emergency Provider Emergency Medicine; Visit Provider Emergency Medicine
DX: I21.4 Non-ST elevation (NSTEMI) myocardial infarction (principal); S01.81XA Laceration without foreign body of other part of head, initial encounter; W18.30XA Fall on same level, unspecified, initial encounter; R42 Dizziness and giddiness; I10 Essential (primary) hypertension; R55 Syncope and collapse; I25.10 Atherosclerotic heart disease of native coronary artery without angina pectoris; E78.5 Hyperlipidemia, unspecified; Z95.5 Presence of coronary angioplasty implant and graft; Z79.82 Long term (current) use of aspirin; Z79.899 Other long term (current) drug therapy; Z86.73 Personal history of transient ischemic attack (TIA), and cerebral infarction without residual deficits; Z53.29 Procedure and treatment not carried out because of patient's decision for other reasons
CPT/HCPCS: 12011; 70450; 71045; 72125; 73030; 80048; 81001; 84484; 85025; 93005; 96361; 96374; 99285; J7040; A4216

== ENCOUNTER → 2024-02-02 | Outpatient (CLI) | payer SELFPAY, OTHER | END | disposition home or self-care (01) | PROVIDERS: PCP Nurse Practitioner Family; Referring Provider Internal Medicine Cardiovascular Disease; Visit Provider Internal Medicine Cardiovascular Disease | DX: I25.10 Atherosclerotic heart disease of native coronary artery without angina pectoris (principal) | CPT/HCPCS: 78452; 93017; A9500; A4216; J2785 ==

== ENCOUNTER 2024-08-09 10:48 | Emergency (ER) | payer OTHER, SELFPAY ==
[2024-08-09] VITALS (8 sets, daily range): BP systolic 123–187; BP diastolic 43–104; PULSE 51–60; RESP 13–18; TEMP 36.6; O2SAT 95–97; BMI 29.7
--- NOTE | 2024-08-09 11:31 | EKG12_ITS ---
Test Reason : DIZZINESS Blood Pressure : */* mmHG Vent. Rate : 53 BPM Atrial Rate : 53 BPM P-R Int : 208 ms QRS Dur : 92 ms QT Int : 490 ms P-R-T Axes : 65 3 20 degrees QTcB Int : 459 ms Sinus bradycardia Otherwise normal ECG Confirmed by ELIZABETH JENKINS, GER ([id number]), marketing editor VERNA VINCENT ([id number]) on 08/10/2024 10:27:22 AM Referred By: REAL/RACHEL Confirmed By: GER JOHNSON MD
[2024-08-09] MEDS: Meclizine HCl 25 MG Tablet PO (11:37)
[2024-08-09] MEDS: Ondansetron 4 MG/2 ML Vial IV (11:37)
[2024-08-09] MEDS: 0.9% Normal Saline (1000mL) 1,000 ML 1000 ML IV (11:37)
[2024-08-09 11:45] LABS: Absolute Lymphocyte Count 1.99 X10^3/uL (0.83-4.51); Absolute Neutrophil Count 7.1 X10^3/uL (2.0-7.7); Basophil# 0.04 X10^3/uL; Basophil% 0.4 % (0-1); Eosinophil# 0.12 X10^3/uL; Eosinophils% 1.2 % (0-5); Hematocrit 37.2 % (37-47); Hemoglobin 12.8 g/dL (12.0-15.0); Lymphocyte # 1.99 X10^3/ul (0.83-4.51); Lymphocyte % 20.1 % (19-41); Mean Corp Hgb Conc 34.4 g/dL (32-36); Mean Corpuscular Hgb 31.3 pg (27.0-32.0); Mean Platelet Vol. 9.2 fl (6.2-12.0); Monocyte% 6.1 % (0-10); NRBC Flagged by Analyzer 0 % (0-5); Neutrophil # 7.05 X10^3/uL (2.7-7.7); Neutrophil % 71.4 % (47-70); Platelet Count 276 K/mm3 (150-450); RBC Distribution Width CV 14.7 % (11.6-14.6); RBC Distribution Width SD 49.1 fl (35.1-43.9); Red Blood Count 4.09 M/mm3 (4.2-5.4); White Blood Count 9.9 K/mm3 (4.4-11.0)
--- NOTE | 2024-08-09 11:49 | EX.ED.DYSGE1 ---
HPI History of Present Illness Chief Complaint: Dizziness Narrative Narrative: Chief complaint and HPI: Dizziness. Chief complaint and HPI: History taken by patient as well as medical record. 73-year-old female with past medical history of CAD status post remote PCI, HTN, HLD, prior brain hemorrhage, DM2 presents for evaluation of dizziness. Patient states she was at her normal state of health today in which she rode her bicycle to a facility. She states shortly later while quilting she felt dizzy. She describes it more as lightheadedness. No room spinning. States that she felt like she was going to pass out so she laid down. She became nauseous and threw up. Per EMS while patient was actively vomiting her heart rate dropped into the 30s. After emesis her heart rate improved. Patient still endorsing some mild lightheadedness. She denies any fever, chills, shortness of breath, chest pain, abdominal pain, dysuria, constipation, diarrhea headache, numbness/tingling, weakness, neurological deficit. She states she has a history of this in the past without any final diagnosis. States she has a remote history of vertigo. On chart review, patient was admitted to our hospital and discharged on 09/16/2023 for same symptoms and presentation. CT brain showed atrophy and mild periventricular white matter ischemic changes with inability to exclude evolving NPH, probable subacute to chronic right basal ganglier lacunar infarct and an old left cerebellar infarct with no evidence of any acute bleed therefore she was admitted. She had a MRI negative for acute stroke. Neurology recommended aspirin and statin for secondary prevention. Patient no longer takes aspirin or the statin. Only takes losartan. Review of systems: See HPI Medications: As listed on the chart Allergies: As listed on the chart PFSH: Per chart Vital signs: As listed on the chart. Reviewed. Physical exam: Gen: A&O x3, NAD Head: Normocephalic, atraumatic Eyes: No sclera icterus, conjunctiva clear, PERRL, EOMI, no nystagmus ENT: Moist mucous membranes, No facial asymmetry Neck: Trachea midline, No JVD CV: RRR, no murmurs, no peripheral edema Resp: Lungs CTA BL, no w/r/c GI: Abd soft, non-distended, non-tender, no r/r/g Musc: Full ROM, no deformity, strength +5/5 in all extremities, no pronator drift, no ataxia Skin: Warm, dry, intact Neuro: Alert, oriented, grossly intact, sensation intact, no focal deficits Psych: Cooperative, appropriate mood and affect [facility] Medical History Syncope Vertigo History of CVA (cerebrovascular accident) History of traumatic brain injury Obesity HLD (hyperlipidemia) HTN (hypertension) Coronary artery disease CHF (congestive heart failure) Diabetes Home Medications ?Medication ?Instructions ?Recorded ?Last Taken ?Type losartan 50 mg tablet 50 mg PO QDAY #90 tabs 01/13/24 08/08/24 Rx cephalexin 500 mg capsule 500 mg PO Q12 #14 CAPSULES 08/09/24 Unknown Rx meclizine 12.5 mg tablet 12.5 mg PO BID PRN DIZZINESS 08/09/24 Unknown History Allergy/AdvReac Type Severity Reaction Status Date / Time No Known Allergies Allergy Verified 01/13/24 09:38 Family History Mother Heart disease CAD (coronary artery disease) CVA (cerebral vascular accident) Diabetes Hypertension Father Heart disease CAD (coronary artery disease) Hypertension Valvular heart disease Heart failure Surgical History History of coronary angioplasty with insertion of stent (08/16/13) Social History household members: spouse and family Smoking Status: Never smoker alcohol intake: never substance use type: does not use EXAM Physical Exam Const Vital Signs: 08/09/24 10:50 08/09/24 11:41 08/09/24 11:44 Temperature 97.8 F Temperature Source Oral Pulse Rate 60 Pulse Rate [Lying] 52 L Pulse Rate [Sitting (for 1 minute prior to obtaining)] 52 L Respiratory Rate 18 Blood Pressure 147/64 H Blood Pressure [Lying] 153/98 H Blood Pressure [Sitting (for 1 minute prior to obtaining)] 169/60 H Blood Pressure [Standing (for 1 minute prior to obtaining)] 187/43 H Blood Pressure Mean 91 Blood Pressure Mean [Lying] 116 Blood Pressure Mean [Sitting (for 1 minute prior to obtaining)] 96 Blood Pressure Mean [Standing (for 1 minute prior to obtaining)] 91 Pulse Ox 97 Oxygen Delivery Method Room Air 08/09/24 12:10 08/09/24 12:52 08/09/24 14:00 Temperature Temperature Source Pulse Rate 56 L 55 L 51 L Pulse Rate [Lying] Pulse Rate [Sitting (for 1 minute prior to obtaining)] Respiratory Rate 13 18 16 Blood Pressure 168/64 H 157/55 H 160/65 H Blood Pressure [Lying] Blood Pressure [Sitting (for 1 minute prior to obtaining)] Blood Pressure [Standing (for 1 minute prior to obtaining)] Blood Pressure Mean 98 89 96 Blood Pressure Mean [Lying] Blood Pressure Mean [Sitting (for 1 minute prior to obtaining)] Blood Pressure Mean [Standing (for 1 minute prior to obtaining)] Pulse Ox 96 97 96 Oxygen Delivery Method Room Air Room Air 08/09/24 14:33 08/09/24 15:00 Temperature 97.8 F Temperature Source Pulse Rate 58 L 58 L Pulse Rate [Lying] Pulse Rate [Sitting (for 1 minute prior to obtaining)] Respiratory Rate 16 16 Blood Pressure 123/104 H Blood Pressure [Lying] Blood Pressure [Sitting (for 1 minute prior to obtaining)] Blood Pressure [Standing (for 1 minute prior to obtaining)] Blood Pressure Mean 110 Blood Pressure Mean [Lying] Blood Pressure Mean [Sitting (for 1 minute prior to obtaining)] Blood Pressure Mean [Standing (for 1 minute prior to obtaining)] Pulse Ox 95 95 Oxygen Delivery Method Room Air MDM MDM MDM Narrative Medical decision making narrative: 73-year-old female with past medical history of CAD status post remote PCI, HTN, HLD, prior brain hemorrhage, DM2 presents for evaluation of dizziness. Describes the dizziness as lightheadedness. Associated symptom was presyncopal symptoms with nausea and vomiting. Per EMS, patient's heart rate dropped in the 30s when actively vomiting, returned to normal afterwards. Suspect vasovagal response from emesis. Patient has a remote history of vertigo. Physical exam is unremarkable. She has a previous admission for similar symptoms in the past. Differential diagnosis includes but is not limited to dehydration, electrolyte abnormality, vertigo, UTI, orthostatic hypotension, arrhythmia. Suspect less likely ACS or intracranial abnormality. Not consistent with CVA. NS bolus, Zofran, meclizine ordered. Will get orthostatic vital signs prior to NS bolus. Orthostatic vital signs negative. EKG and chest x-ray reviewed see below. CBC without leukocytosis or anemia. BMP relatively unremarkable without significant electrolyte abnormality or BERNICE. Initial troponin is 7. Repeat troponin 16. Patient not having any chest pain. Heart score is a 3 which places her at low risk. I have low suspicion for ACS. UA positive for UTI. Urine culture sent. Patient will be placed on Keflex. UTI may be the source of patient's lightheadedness. CT head without any intracranial abnormality. Findings show sinusitis however this does not fit clinically. Patient denies any fever, chills, URI symptoms. She has no facial tenderness or sinus pressure. Will not treat. On reexamination, patient has ambulated multiple times to the restroom without difficulty. She states her lightheadedness has completely resolved. She was updated of all of the results including the mildly elevated troponin. With shared decision making she declined further workup and would like to discharge home. I do think this is appropriate since I have a low suspicion for ACS as well as patient's symptoms have resolved and she has a UTI to explain. Follow-up with PCP. Return precautions explained. Keflex prescription written. EKG: Interpreted by me/EM physician: EKG shows sinus bradycardia with no acute ischemic changes. Heart rate 53. Diagnostic: Interpreted by me/EM physician: Chest x-ray without pneumonia, effusion, cardiomegaly, pneumothorax. Radiology in agreement. Impression: 1. Lightheadedness, resolved 2. UTI Lab Data Labs: Laboratory Results - last 24 hr 08/09/24 08/09/24 08/09/24 11:29 12:25 13:30 WBC 9.9 RBC 4.09 L Hgb 12.8 Hct 37.2 MCV 91.0 MCH 31.3 MCHC 34.4 RDW Std Deviation 49.1 H RDW Coeff of Jase 14.7 H Plt Count 276 MPV 9.2 Immature Gran % (Auto) 0.800 Neut % (Auto) 71.4 H Lymph % (Auto) 20.1 [place] % (Auto) 6.1 Eos % (Auto) 1.2 Baso % (Auto) 0.4 Absolute Neuts (auto) 7.1 Absolute Lymphs (auto) 1.99 Nucleated RBC % 0 Sodium 141 Potassium 4.2 Chloride 107 Carbon Dioxide 22.2 Anion Gap 12 BUN 15 Creatinine 0.69 L Estim Creat Clear Calc 65.92 Est GFR (MDRD) Non-Af 92 BUN/Creatinine Ratio 21.9 H Glucose 117 H Calcium 9.5 Troponin T High Sens 7 Troponin T Hi Sens 2 Hr 16 H Urine Color Yellow Urine Clarity Cloudy Urine pH 6.0 Ur Specific [place] 1.020 Urine Protein 30 H Urine Glucose (UA) Normal Urine Ketones Negative Urine Occult Blood 50 H Urine Nitrite Negative Urine Bilirubin Negative Urine Urobilinogen 1 H Ur Leukocyte Esterase 500 H Urine RBC 0-5 SEEN Urine WBC 5-10 SEEN Ur Squamous Epith Cells 0 SEEN Urine Bacteria 3+ Urine Mucus 0 SEEN Radiography Diagnostic Testing: Clinical Impression(s) from Imaging Studies Brain CT 08/09/24 12:01 IMPRESSION: NO ACUTE FINDINGS Sinusitis. Reading Location: [facility] Chest X-Ray 08/09/24 12:05 IMPRESSION: No acute abnormality is seen. Reading Location: [place] [id number] Discharge Plan Triage Chief Complaint: Dizziness ED Provider: Eliel Kaur Dx/Rx/DC Orders Clinical Impression: Acute UTI, Episodic lightheadedness Instructions: Urinary Tract Infections in Women, ED Dizziness, Uncertain Cause Prescriptions: New cephalexin 500 mg capsule 500 mg PO Q12 Qty: 14 0RF No Action losartan 50 mg tablet 50 mg PO QDAY Qty: 90 3RF meclizine 12.5 mg Tablet 12.5 mg PO BID PRN (Reason: DIZZINESS) Primary Care Provider: Tk Gomez Referrals: Tk Gomez DO [Primary Care Provider] - 3-5 Days Activity Restrictions/Additional Instructions: Make sure you are eating and drinking plenty of fluids. Follow-up with your primary care physician. Return back to the ED if symptoms change or worsen. Take all of your antibiotics. Print Language: Honduran Disposition Disposition: Home, Self Care Discharge Date/Time: 08/09/24 15:06
--- NOTE | 2024-08-09 12:01 | CT_ITS ---
PROCEDURE: BRAIN/HEAD WITHOUT CONTRAST 08/09/2024 REASON FOR EXAM: DIZZY TECHNIQUE: Head CT without intravenous contrast. Coronal and Sagittal reconstruction series were provided. One or more dose reduction techniques were used (e.g., Automated exposure control, adjustment of the mA and/or kV according to patient size, use of iterative reconstruction technique. RADIATION DOSE SUMMARY: CTDlvol: 44.99 mGy DLP: 829.85 mGycm COMPARISON: None FINDINGS: Brain: Low density in the periventricular white matter suggests mild chronic small vessel ischemic changes. CSF Spaces: Mild generalized cerebral atrophy Sinuses/Mastoids: Mucosal thickening of the ethmoid sinuses as well as the right maxillary sinus. Partial opacification of the left maxillary sinus. Bones: Unremarkable CT/Brain/Head without Contrast IMPRESSION: NO ACUTE FINDINGS Sinusitis. Reading Location: [place] [address]
[2024-08-09 12:05] LABS: Troponin T High Sensitivity 7 ng/L (<=14)
--- NOTE | 2024-08-09 12:05 | RAD_ITS ---
PROCEDURE: CHEST PA AND LATERAL 08/09/2024 REASON FOR EXAM: DIZZY TECHNIQUE: Frontal and lateral views of the chest. COMPARISON: None FINDINGS: Hardware: EKG electrodes are seen. Heart: Heart size is mildly enlarged. Mediastinum: Calcification of the aortic arch. Lungs: The lungs are clear. Bones: Degenerative changes are identified within the thoracic spine. RAD/Chest PA and Lateral IMPRESSION: No acute abnormality is seen. Reading Location: [place] [id number]
[2024-08-09 12:11] LABS: Anion Gap 12 (5-15); BUN 15 mg/dL (4-19); BUN/Creat Ratio 21.9 RATIO (10-20); Calcium,Total 9.5 mg/dL (7.6-11.0); Carbon Dioxide 22.2 mmol/L (21.0-32.0); Chloride 107 mmol/L (98-108); Creatinine, Serum 0.69 mg/dL (0.70-1.20); EST Glomerular Filtration Rate 92 (>60); Estimated Creatinine Clearance 65.92 ml/min (50-250); Glucose 117 mg/dL (70-99); Potassium 4.2 mmol/L (3.3-5.1); Sodium Level 141 mmol/L (133-145)
[2024-08-09 12:41] LABS: Mucous, Urine 0 SEEN /hpf (<or=2+); Squamous Epithelial Cells - UA 0 SEEN /hpf (5-10)
[2024-08-09 13:15] LABS: Color, Urine Yellow (Yellow); Glucose, Dipstick Normal (Normal); Ketone-Dipstick Negative (Negative); Leukocyte Esterase-Dipstick 500 /ul (Negative); Nitrite-Dipstick Negative (Negative); Occult Blood-Urine 50 /ul (Negative); Protein-Dipstick 30 mg/dl (Negative); Urine Bilirubin Dipstick Negative (Negative); Urine Clarity Cloudy (Clear); Urine Urobilinogen 1 mg/dl (Normal)
[2024-08-09 13:40] LABS: Bacteria 3+ /hpf (None Seen); White Blood Cells 5-10 SEEN /hpf (0-5)
[2024-08-09 13:42] LABS: Red Blood Cells-Urine 0-5 SEEN /hpf (0-5)
[2024-08-09 13:58] LABS: Troponin T High Sens 2 HR 16 ng/L (<=14)
== END 2024-08-09 15:06 | disposition home or self-care (01) ==
PROVIDERS: Emergency Provider Surgery; PCP Family Medicine; Visit Provider Surgery
DX: R42 Dizziness and giddiness (principal); N39.0 Urinary tract infection, site not specified; I25.10 Atherosclerotic heart disease of native coronary artery without angina pectoris; I10 Essential (primary) hypertension; Z95.5 Presence of coronary angioplasty implant and graft; Z79.899 Other long term (current) drug therapy; Z86.73 Personal history of transient ischemic attack (TIA), and cerebral infarction without residual deficits
CPT/HCPCS: 70450; 71046; 80048; 81001; 84484; 85025; 87086; 87088; 93005; 96361; 96374; 99285; A4216; J2405

== ENCOUNTER 2024-12-21 13:04 | Outpatient (CLI) | payer SELFPAY, OTHER ==
--- NOTE | 2024-12-21 13:19 | MRI_ITS ---
PROCEDURE: BRAIN W/WO CONTRAST 12/21/2024 REASON FOR EXAM: ASYMMATRIC HEARING LOSS TINNITIS RT EAR TECHNIQUE: Procedure Code: [id number] Modality: MR Procedure: BRAIN W/WO CONTRAST Multiplanar and multisequence images were obtained. CONTRAST: Clariscan VOLUME: 15 mL COMPARISON: 09-Aug-2024 CT FINDINGS: Left AICA type III vascular loop. Normal appearance of the 7th and 8th cranial nerves. Normal MRI appearance of the petrous temporal bones cerebellopontine angles with no definite masses. No acute or hyperacute infarcts. No intracerebral or extra-axial acute hemorrhage. No obvious enhancing masses. Bilateral cerebral periventricular and subcortical foci and patches of high T2/FLAIR WI signal. Normal MRI signal of the cerebellar hemispheres and brain stem. Dilated ventricular system, cortical sulci and extra-axial CSF spaces. No shift of midline structures. Normal MRI appearance of orbital structures, both globes, optic nerves, optic chiasm, optic tracts and optic radiations. Scanned paranasal sinuses show pansinusitis. MRI/Brain W/WO Contrast IMPRESSION: Left AICA type III vascular loop. No acute infarcts. No intracerebral or extra-axial hematomas. No enhancing mass es. Bilateral cerebral microvascular ischemic changes. Stable. Brain involutional changes. Stable Reading Location: [facility]
== END 2024-12-21 23:59 | disposition home or self-care (01) ==
PROVIDERS: PCP Nurse Practitioner Family; Referring Provider Otolaryngology; Visit Provider Otolaryngology
DX: H90.3 Sensorineural hearing loss, bilateral (principal); H93.11 Tinnitus, right ear; R42 Dizziness and giddiness
CPT/HCPCS: 70553; A9575; A4216